=== PATIENT | female | born 1985 | race Caucasian/White ===

== ENCOUNTER → 2019-11-28 12:59 | Outpatient (CLI) | payer BC, OTHER, SELFPAY ==
[2019-11-28 15:11] LABS: GTT (PREG) 1 Hour PP 50gm Dose 154 mg/dL (76-139)
== END ==
PROVIDERS: PCP Family Medicine; Referring Provider Family Medicine; Visit Provider Family Medicine
DX: Z34.90 Encounter for supervision of normal pregnancy, unspecified, unspecified trimester (principal)
CPT/HCPCS: 36415; 82950

== ENCOUNTER → 2019-12-05 07:07 | Outpatient (CLI) | payer BC, OTHER, SELFPAY ==
[2019-12-05 08:42] LABS: Glucose Fasting 71 mg/dL (70-100)
[2019-12-05 10:08] LABS: Glucose 2 Hour 78 mg/dL (70-140)
[2019-12-05 10:19] LABS: Glucose 1 Hour 102 mg/dL (70-170)
[2019-12-05 10:30] LABS: Glucose Tol Interpretation INTERPRETATION
[2019-12-05 12:19] LABS: Glucose 3 Hour 89 mg/dL (70-115)
== END ==
PROVIDERS: PCP Family Medicine; Referring Provider Family Medicine; Visit Provider Family Medicine
DX: R73.09 Other abnormal glucose (principal)
CPT/HCPCS: 36415; 82951; 82952

== ENCOUNTER → 2019-12-22 07:33 | Outpatient (CLI) | payer BC, OTHER, SELFPAY ==
--- NOTE | 2019-12-22 07:35 | DI.US.S_ITS ---
LIMITED ULTRASOUND OF RIGHT BREAST AND AXILLA: 12/22/2019 CLINICAL: Palpable right breast lump. No prior mammograms in this young gravid patient. Color flow and real-time ultrasound of the right breast 3 o'clock, and axilla regions were performed. Conley scale images of the real-time examination were reviewed. There is a 2.6 cm x 2.3 cm x 1.3 cm oval mass with a circumscribed margin in the right breast at 3 o'clock posterior depth 7 cm from the nipple. This oval mass is hypoechoic with a well-defined boundary. This correlates as palpated. Color flow imaging demonstrates that there is vascularity present. There also is a 1.2 cm x 0.9 cm x 0.9 cm oval mass with a circumscribed margin in the right breast at 3 o'clock anterior depth 3 cm from the nipple. This oval mass is hypoechoic with a well-defined boundary. Color flow imaging demonstrates that there is vascularity present. No significant abnormalities were seen sonographically in the right axilla. IMPRESSION: PROBABLY BENIGN The 2.6 cm oval mass in the right breast at 3 o'clock posterior depth most likely is a fibroadenoma and is probably benign. The 1.2 cm oval mass in the right breast at 3 o'clock anterior depth most likely is a fibroadenoma and is probably benign. A follow-up mammogram and an ultrasound in 6 months is recommended to demonstrate stability. Contralateral left breast may also be helpful. Exam findings were reviewed with the patient over the phone by Dr. Nuñez. Possible biopsy of the larger mass was discussed. The patient would like to discuss biopsy with her provider and the patient will call to schedule biopsy if desired. This exam was interpreted at Station ID: [id number]. Electronically Signed By: Pelon Nuñez M.D. [facility]/:12/22/2019 09:04:55 letter sent: Followup Recommended Ultrasound BI-RADS: 3 Probably benign
== END ==
PROVIDERS: PCP Family Medicine; Referring Provider Family Medicine; Visit Provider Family Medicine
DX: R92.8 Other abnormal and inconclusive findings on diagnostic imaging of breast (principal); O92.29 Other disorders of breast associated with pregnancy and the puerperium; Z3A.33 33 weeks gestation of pregnancy
CPT/HCPCS: 76642

== ENCOUNTER → 2020-01-01 14:46 | Outpatient (CLI) | payer BC, OTHER, SELFPAY ==
--- NOTE | 2020-01-01 | PATH_ITS ---
[facility] Accession Number: [id number] . 01 Material submitted: . breast - RT BREAST 3:00 7CM FN . 02 Diagnosis: Right Breast Mass at 3 o'clock, 7 cm from Nipple, Needle Core Biopsy: Fibroepithelial lesion, consistent with fibroadenoma. Patchy regions of adenosis with lactational changes are present. Negative for atypia or malignancy. MRV 01/05/2020 1057 Local . 02 Comment: As part of routine quality assurance associate, this case was also reviewed by Dr. Ashraf, who agrees with the interpretation. . 02 Electronically signed: . Dora Zhong MD, Pathologist NPI- [id number] . 01 Gross description: . Received one formalin-filled container, labeled with the patient's name. The specimen leaked in transit, handwritten information on container not legible. Designated RT breast 3 o'clock, 7 cm FN biopsy. The specimen is received with a plastic filter in container, sample loose in container and consists of multiple light yellow-santos pieces of tissue which range in size from less than 0.1 cm to 0.6 x 0.3 x 0.3 cm. The specimen is entirely submitted in one cassette. Possible collection date and time per requisition: 01/01/20 at 1451. Total fixation time: Approximately 12 hours. ([id number]) /R 01/02/2020 0219 Local . 02 Pathologist provided ICD-10: D24.1 . 02 CPT . 175395 Performed at: 01 [facility] [address] [place] [address], [place], [place] [id number] MD Spencer Mesa MD Phone: [phone] Performed at: 02 [facility] [id number] [place] [id number] MD Fallon Ashraf MD Phone: [phone]
--- NOTE | 2020-01-01 14:47 | DI.US.S_ITS ---
ULTRASOUND GUIDED BIOPSY RIGHT BREAST USING VACUUM DEVICE WITH MARKING DEVICE INSERTED: 01/01/2020 CLINICAL: Right breast mass. PATIENT CONSENT: Risks (minor bleeding, infection, vasovagal reaction and repeat procedure), benefits and alternatives were explained to the patient and written informed consent was obtained. Correlation is made to exam dated: 12/22/2019 [facility]. An ultrasound guided biopsy using real-time ultrasound was performed for the mass located in the right breast at 3 o'clock posterior depth. The skin was prepped in the usual manner. Local anesthetic was administered to the access site. A small incision was made in the breast. The abnormality was approached from the medial aspect. A biopsy needle was placed adjacent to the abnormality under ultrasound guidance. Once the needle was documented to be in the correct location, six specimens were obtained using the Mammotome biopsy system. A clip was inserted into the biopsy cavity. Post procedure imaging demonstrates the location device at the targeted area. The specimens were sent to the laboratory for pathological analysis. IMPRESSION: ULTRASOUND GUIDED BIOPSY BENIGN Ultrasound guided biopsy of the mass in the right breast at 3 o'clock posterior depth was successful. Pathology indicates benign fibroadenoma. Pathology results are concordant with imaging findings. This exam was interpreted at Station ID: [id number]. Zaki josue,ar/:01/06/2020 12:15:30
== END ==
PROVIDERS: PCP Family Medicine; Referring Provider Family Medicine; Visit Provider Family Medicine
DX: D24.1 Benign neoplasm of right breast (principal); N60.21 Fibroadenosis of right breast
CPT/HCPCS: 19083

== ENCOUNTER → 2020-01-06 16:13 | Outpatient (CLI) | payer BC, OTHER, SELFPAY ==
[2020-01-08 17:27] LABS: Strep Grp B PCR NEG for Grp B Strep
== END ==
PROVIDERS: PCP Family Medicine; Visit Provider Family Medicine
DX: Z3A.36 36 weeks gestation of pregnancy (principal)
CPT/HCPCS: 87653

== ENCOUNTER → 2020-01-13 16:07 | Outpatient (CLI) | payer BC, OTHER, SELFPAY ==
[2020-01-13 18:01] LABS: Thyroid Stimulating Hormone 2.11 uIU/mL (0.47-4.68)
== END ==
PROVIDERS: PCP Family Medicine; Referring Provider Family Medicine; Visit Provider Family Medicine
DX: E03.9 Hypothyroidism, unspecified (principal)
CPT/HCPCS: 36415; 84443

== ENCOUNTER 2020-02-03 16:26 | Inpatient (IN) | payer BC, OTHER, SELFPAY ==
--- NOTE | 2020-02-03 18:53 | PM.OBHP.1 ---
OB HPI Date/Time Date of admission: 02/03/20 Date Patient Seen: 02/03/20 Time Patient Seen: 18:53 History of Present Condition Chief complaint: Eval of Labor : 3 Para: 0 Estimated Date of Delivery: 02/02/20 Estimated Gestational Age (weeks): 40w1d Narrative: No Monreal is a 34 year old at 40w1d who presented with regular painful contractions. Pt reports contractions starting around 8pm last night, increasing in intensity since then. They continue to be irregular in timing. She has had mild vaginal bleeding throughout the day today. No LOF. She has been feeling her baby move regularly. History of Present care: good care, initiated at week # (7) and pounds weight gain (36) Dating criteria: LMP confirmed by 1st trimester US Ultrasounds: normal 1st trimester US and normal mid trimester US Obstetrical complications: none Medical complications: other (hypothyroidism on levothyroxine) Preadmission Labs Blood type: O (+) positive -: Antibody screen: negative, GBS status: negative, HBsAG: negative, HIV: negative and RPR/VDLR: negative -: Chlamydia screen: not detected and Gonorrhea screen: not detected -: Rubella: immune HCT: 36.5 PAP: Normal Cell-free DNA: Negative 1 hr GTT: 154 3 hr GTT: 1 hr (102), 2 hr (78) and 3 hr (89) Fasting blood glucose: 71 Prior (ies) History: 2004 & 2007 - elective abortions Evaluation Evaluation Baseline heart rate: 130 Variability: Moderate (11-25) monitor accelerations: Present monitor decelerations: Absent Contraction Frequency (minutes): 2 Uterine Contraction Intensity: Strong/Firm Cervical dilation (cm): 5 Cervical effacement (%): 90 station: -1 [facility] Medical History AMA (advanced maternal age) primigravida 35+ (Acute) H/O being hospitalized (Acute) 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) Hypothyroidism (Acute) Surgical History No history of previous surgery (Acute) Family History Mother Breast cancer Brain cancer Father Family estrangement Grandfather Unknown whether patient has any health problems Grandmother Hip fracture Grandfather Unknown whether patient has any health problems Family estrangement Grandmother Unknown whether patient has any health problems Family estrangement Social History marital status: household members: spouse pets and animals: No education level: college (BA [employer] ) occupational status: employed current occupational exposures/hazards: No Previous occupational history: works from home currently special karely needs: No do you feel safe at home: Yes Smoking Status: Former smoker (in college - some experimental ) second hand exposure: No alcohol intake: former (pre- : rare) substance use type: does not use frequency: 5-6 times per week duration: 30-45 minutes/day Meds Home Medications and Allergies Home Medications Medication Instructions Recorded Confirmed Type levothyroxine 125 mcg capsule 125 mcg PO DAILY 11/20/19 01/13/20 History prenat.vits,raul,bmg-yubo-plaab 1 tab PO DAILY 11/20/19 01/13/20 History breast pump #1 each 01/20/20 01/20/20 Rx Allergies Allergy/AdvReac Type Severity Reaction Status Date / Time No Known Drug Allergies Allergy Verified 01/13/20 15:47 Exam Narrative Exam Narrative: Gen: NAD, sitting comfortably in bed, appears well CV: RRR, no murmurs Resp: clear to auscultation bilaterally Abd: soft, nondistended, gravid Ext: no edema Objective Labs Result Diagrams: 02/03/20 19:30 Assessment and Plan Assessment and Plan Assessment and Plan narrative: 34yo at 40w1d who presented in active labor. complicated by hypothyroidism well controlled on Levothyroxine. GBS negative, Rh positive. - Expectant management, anticipate - FHT reassuring - Epidural for pain control if desired - GBS negative, no prophylaxis indicated
[2020-02-03 19:46] LABS: Add Manual Diff / Slide Review NO; Basophils Absolute Auto 100 /uL (0-100); Basophils Percent Auto 0.4 % (0-2); Eosinophils Absolute Auto 0 /uL (0-450); Eosinophils Percent Auto 0.2 % (2-4); Hematocrit 36.5 % (36-46); Hemoglobin 12.5 g/dL (12.0-16.0); Lymphocytes Absolute Auto 1200 /uL (1100-4500); Lymphocytes Percent Auto 7.1 % (25-40); Mean Corpuscular HGB Conc 34.2 % (30-36); Mean Corpuscular Hemoglobin 32.1 PG (26-34); Mean Corpuscular Volume 93.9 fL (80-100); Monocytes Absolute Auto 700 /uL (0-900); Monocytes Percent Auto 4.4 % (3-14); Neutrophils Absolute Auto 14600 /uL (1500-7000); Neutrophils Percent Auto 87.9 % (50-75); Platelet Count 123 X10^3/uL (150-400); Red Blood Cell Count 3.89 X10^6/uL (4.0-5.2); Red Cell Distribution Width 12.9 % (11.6-14.8); White Blood Cell Count 16.6 X10^3/uL (4.5-11.0)
[2020-02-03 20:19] LABS: COVID19 -Nasal RAPID Negative (Negative)
[2020-02-03] MEDS: LACTATED RINGERS 1,000 ML 100 ML IV (21:00)
[2020-02-04] MEDS: OXYTOCIN PREMIX 30 UNIT/500 ML PLAST..BAG IV (01:35)
[2020-02-04] MEDS: LACTATED RINGERS 1,000 ML 100 ML IV (02:04)
--- NOTE | 2020-02-04 04:23 | PM.OBPNLAB ---
Date/Time Date Patient Seen: 02/04/20 Time Patient Seen: 02:45 Pelvic Exam Dilation (cm): 10 Effacement (%): 100 station: 0 Contractions Pitocin rate (mU/min): 3 Contraction frequency (min): 5 Contraction pattern: Irregular Contraction intensity: Strong/Firm Status status: Category l Heart Rate Baseline: 130 Monitor Accelerations: Present Monitor Decelerations: Absent Monitor Variability: Moderate Assessment and Plan Comments: 34yo at 40w1d who presented in active labor. complicated by hypothyroidism well controlled on Levothyroxine. GBS negative, Rh positive. Pitocin initiated due to minimal cervical change and irregular contractions. - Expectant management, anticipate - FHT reassuring - Epidural in place for pain control, working well - GBS negative, no prophylaxis indicated - Continue pitocin, titrate as tolerated
[2020-02-04] MEDS: FENT 2MCG/ML BUPIV 0.125% EPI 200 MCG/100 ML PLAST..BAG 8 MCG EPIDURAL (07:00)
--- NOTE | 2020-02-04 10:26 | PM.OBPRVD ---
Labor & Delivery Delivery date: 02/04/20 Estimated blood loss (mL): 200 Anesthesia type: Epidural Complications: None Narrative: PROCEDURE: at 40w2d presented in active labor and was admitted to Labor and Delivery. The patient progressed through the 1st stage over 17.5 hours. Pain was controlled with an epidural. The pt was started on Pitocin due to spacing of her contractions. The patient progressed through the 2nd stage over 4hrs. Due to maternal exhaustion and asynclitic presentation, the decision was made to proceed with an operative vaginal delivery. Indication for operative vaginal delivery was assessed to be secondary to maternal exhaustion and asynclitic presentation. Patient was evaluated and noted to have adequate pain control. Patient counseled on risks/benefits/alternatives of vacuum assisted delivery. Risks were discussed and they included but were not limited to a need for an episiotomy, pressure alva on the baby, lacerations to the baby's scalp/face, serious damage including skull fracture, the need to proceed with an abdominal procedure, , paralysis of the baby's arms and/or legs, neurological impairment of the baby. Alternatives would include CS or further observation depending on status. Questions were answered and the patient verbalized an understanding and decided to proceed. Cervix completely dilated and maternal bladder emptied. Vacuum cup of the Kiwi Omni[employer] applied to the flexion point without difficulty and during contractions, pressure applied between 400-600 mmHg as indicated in the green zone of the pressure gauge. With pulls, there was progression of the station, however was unable to progress to fully . After 6 pulls and 1 pop-off, it was determined that the vacuum would not be successful and no further attempts were made. Dr Dodd was consulted, and it was determined that forceps would be appropriate to attempt for delivery. The Laufe forceps were applied without difficulty to the head and articulated easily. Using downward traction during 2 sets of contractions, the infant was delivered over intact perineum without difficulty. The infant delivered direct OP presentation, however caput indicated likely ROT presentation prior to forceps placement. Forceps were removed when the pt was . The anterior shoulder and remainder of the was delivered without difficulty to maternal abdomen. Cord clamped and cut. was then taken to the warmer. APGARs were 7/9. There was superficial bruising on the head from the forceps and vacuum, in addition to a large abrasion around the site of the vacuum. Facial exam was symmetric. After delivery of the , thin meconium was noted. The perineum and vagina were inspected with 3rd degree laceration noted, with a very small laceration into the most peripheral rectal mucosa. The mucosa was repaired with 3-O Chromic, and muscle with O-Vicryl with interrupted sutures. The remainder of the laceration was then repaired with 2-O Chromic in the usual fashion. PREPROCEDURE DIAGNOSIS: Intrauterine at 40w1d GBS negative RH positive POSTPROCEDURE DIAGNOSIS: Intrauterine at 40w2d, delivered Same as preprocedure Asynclitic presentation Failed vacuum, forceps-assisted vaginal delivery INDUCTION: No LABOR AUGMENTATION: Pitocin ROM APPEARANCE: Meconium-stained BABY A DELIVERY TIME: 8:24 BABY A OUTCOME: Viable BABY A SEX: Male BABY A WEIGHT: 8lb2.4oz BABY A PRESENTATION: Vertex BABY A POSITION: Direct OP BABY A NUCHAL CORD: None BABY A # CORD VESSELS: 3 BABY A CORD GASES OBTAINED: No PLACENTA DELIVERY TIME: 8:28 PLACENTAL DELIVERY TYPE: Spontaneous PLACENTA APPEARANCE: Intact [place] Baby 1: gender: Male cord vessel description: 3 Vessels score (1 min): 7 score (5 min): 9 Plan for aftercare: Normal care Stool softeners
[2020-02-04] MEDS: IBUPROFEN 600 MG TABLET PO ×3 (10:38→22:32)
[2020-02-05] MEDS: IBUPROFEN 600 MG TABLET PO (06:27)
[2020-02-05] MEDS: LEVOTHYROXINE 125 MCG TABLET PO (06:27)
[2020-02-05] MEDS: DOCUSATE 100 MG CAPSULE PO (09:15)
--- NOTE | 2020-02-05 09:52 | P.DS_ITS ---
Discharge Providers Provider Date of admission: 02/03/20 16:26 Discharge Date: 02/05/20 Primary care physician: Kimmie Wallis MD Consults: 02/05/20 09:16 Consult to Public Works Supervisor Routine Comment: Discharge provider: Kimmie Wallis MD Summary Hospital Course Date Patient Seen: 02/05/20 Time Patient Seen: 08:15 Procedures: Forceps-assisted vaginal delivery Hospital Course: The patient presented in active labor. She received an epidural for pain control. Pitocin was initiated due to spacing of her contractions. She slowly progressed to complete dilation. The patient pushed for nearly 4 hours. Due to maternal exhaustion and Gregorio in clinic presentation, vacuum was applied. After 6 pulls the, it was determined the vacuum would not be successful. Due to very low station, forceps were then applied. The patient successfully delivered a viable baby boy via forceps assisted vaginal delivery in direct OP presentation. A third-degree perineal laceration was then repaired. Rectal exam after repair was intact. , there were no significant complications. At the time of discharge the patient was voiding, ambulating, and passing flatus without difficulty. She did have some discomfort with sitting. She will continue on stool softeners at discharge. Her lochia was decreasing appropriately. She is breast-feeding with good latch. Her pain was adequately controlled with ibuprofen. She will follow-up in clinic in 6 weeks for well-child check. This provider will also be seen the patient's infant, and will check in with the patient frequently in the interim. The patient is undecided regarding contraception. Peripartum Data Delivery Method: Assisted Delivery Laceration Description: Perineal - 3rd Degree Episiotomy description: None complications: none 1: Gender: Male Disposition of : home Time Spent with Patient Time attestation: Total time spent providing and/or coordinating discharge services: Time spent: Greater than 30 minutes Objective Labs Result Diagrams: 02/03/20 19:30 Discharge Plan Discharge Plan Patient Disposition: Home Discharge orders & Medications Prescriptions: New docusate sodium [DOK] 100 mg Capsule 100 mg PO BID Qty: 60 RF: 0 ibuprofen 600 mg Tablet 600 mg PO Q6HR PRN (Reason: Pain, Mild (1-3)) Qty: 30 RF: 0 magnesium hydroxide [Milk of Magnesia] 400 mg/5 mL suspension 30 ml PO BEDTIME PRN (Reason: Constipation) Qty: 300 RF: 0 polyethylene glycol 3350 [Miralax] 17 gram/dose powder 17 gram PO DAILY Qty: 238 RF: 0 Continued (DME) breast pump Device See Rx Instructions .ROUTE .MEDSUPPLY Qty: 1 RF: 0 prenat.vits,raul,jkj-apqi-lanta Tablet 1 tab PO DAILY RF: 0 levothyroxine 125 mcg capsule 125 mcg PO DAILY RF: 0 Follow up/Referrals: Kimmie Wallis MD [Primary Care Provider] - 6 Weeks Diet/Activity/Treatments Diet: Regular Visit Report/Discharge Packet Instructions: DI for Labor and Delivery, Vaginal Visit Report Forms: Patient Portal/API, Stroke Signs & Symptoms Discharge Data Primary Care Provider: Kimmie Wallis
[2020-02-05 09:56] VITALS: BP 103/63; PULSE 82; RESP 16; TEMP 37.1
--- NOTE | 2020-02-11 13:52 | P.CONS_ITS ---
History of Present Illness Consult details Date Patient Seen: 02/04/20 Time Patient Seen: 08:30 Chief complaint: MATERNITY Reason for consult: Prolonged 2nd stage of labor Requesting provider: Kimmie Wallis Narrative: Patient is a 34-year-old 3 para 0020 at 40-,2/7 weeks gestation who presented in active labor. The patient progressed but had a 17- 1/2 hour 1st stage of labor. She received an epidural for pain management. She was started on Pitocin to augment labor. Eight in at delivery, there was failed vacuum attempt x4. Ob consult id regarding possible use of forceps for delivery. Meds Home Medications and Allergies Home Medications Medication Instructions Recorded Confirmed Type levothyroxine 125 mcg capsule 125 mcg PO DAILY 11/20/19 01/13/20 History prenat.vits,raul,wvh-xfix-papiq 1 tab PO DAILY 11/20/19 01/13/20 History breast pump #1 each 01/20/20 01/20/20 Rx docusate sodium [DOK] 100 mg PO BID #60 cap 02/05/20 Rx ibuprofen 600 mg PO Q6HR PRN #30 tab 02/05/20 Rx magnesium hydroxide [Milk of 30 ml PO BEDTIME PRN #300 ml 02/05/20 Rx Magnesia] polyethylene glycol 3350 [Miralax] 17 gram PO DAILY #238 gram 02/05/20 Rx Allergies Allergy/AdvReac Type Severity Reaction Status Date / Time No Known Drug Allergies Allergy Verified 01/13/20 15:47 Exam Vital Signs (past 8 hours): Generally: Patient comfortable with contractions. Vaginal exam: Patient is complete and +1 station. There is caput that extends to the +2 station. There are superficial abrasions on the scalp. The baby is in the right occiput transverse presentation. Procedure: The bladder was emptied of a small amount of clear yellow urine. The Laufe forceps were applied and articulated without difficulty. With 2 contractions the vertex delivered in the direct occiput posterior presentation over an intact perineum. The Laufe forceps were removed removed at . The remainder of the body delivered without difficulty by Dr. Wallis. There was a partial third-degree laceration and a small mucosal tear on the rectum. These were repaired in the usual fashion by Dr. Wallis. Objective Labs Result Diagrams: 02/03/20 19:30 Assessment & Plan Assessment & Plan narrative: Assessment: 34-year-old 3 para 0020 at 40-,2/7 weeks gestation with a prolonged 2nd stage of labor Failed vacuum delivery Plan: Outlet forceps delivery as above Repair by Dr. Wallis as above. Time Spent With Patient Time with patient: 25 - 35 minutes
== END 2020-02-05 11:41 | disposition home or self-care (01) | DRG 768 ==
PROVIDERS: Admitting Provider Family Medicine; PCP Family Medicine; Referring Provider Family Medicine; Visit Provider Family Medicine
DX: O32.8XX0 Maternal care for other malpresentation of fetus, not applicable or unspecified (principal); Z37.0 Single live birth; O70.20 Third degree perineal laceration during delivery, unspecified; O75.81 Maternal exhaustion complicating labor and delivery; Z3A.40 40 weeks gestation of pregnancy
CPT/HCPCS: 01967; 59050; 59410; 85025; 86850; 86900; 86901; 87635; 99233; 99253; G0379; J2590

== ENCOUNTER → 2020-07-16 17:49 | Outpatient (CLI) | payer BC, OTHER, SELFPAY ==
[2020-07-16 18:22] LABS: COVID19 -Nasal RAPID Negative (Negative)
== END ==
PROVIDERS: PCP Family Medicine; Visit Provider Physician Assistant
DX: R50.9 Fever, unspecified (principal); Z20.822 Contact with and (suspected) exposure to COVID-19
CPT/HCPCS: 87635

== ENCOUNTER → 2020-09-29 15:46 | Outpatient (CLI) | payer BC, OTHER, SELFPAY ==
[2020-09-30 12:27] LABS: Mumps Virus IgG Antibody 39.7 AU/mL (Immune >10.9); Rubeola Measles IgG < 13.5 AU/mL (Immune >16.4); Varicella IgG Antibody 1592 index (Immune >165)
[2020-09-30 16:32] LABS: Rubella Antibody IgG 32.8 IU/mL (>15)
== END ==
PROVIDERS: PCP Family Medicine; Referring Provider Family Medicine; Visit Provider Family Medicine
DX: Z02.0 Encounter for examination for admission to educational institution (principal)
CPT/HCPCS: 36415; 86735; 86762; 86765; 86787

== ENCOUNTER 2020-10-14 13:45 | Outpatient (RCR) | payer BC, OTHER, SELFPAY ==
--- NOTE | 2020-03-23 18:42 | PT.OIE ---
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) Hypothyroidism (Acute) Third degree perineal laceration during delivery (Acute) Past Surgical History (Last Reviewed 12/17/19 @ 18:00 by GREGORY Burt) No history of previous surgery (Acute) Visit Care Team Role Provider Type Kimmie Wallis MD Attending Provider Physician Primary Care Provider Referring Provider Specialty: [facility] Address: [address] [place] [address], [facility] Email: [email or web address] Physical Therapy Initial Evaluation PT-OP-A Visit Information Start: 03/23/20 12:07 Freq: Status: Active Protocol: Document 03/23/20 12:58 [facility] (Rec: 03/23/20 12:59 [facility] [id number]) Out-Patient Physical Therapy Visit Information Visit Information Visit Type Initial Evaluation Visit Start Time 13:00 Visit Stop Time 13:45 Total Visit Minutes 45 Visit Number 1 Evaluation Information Evaluation Date 03/23/20 PT-OP-B Current Condition Start: 03/23/20 12:07 Freq: Status: Active Protocol: Document 03/23/20 13:01 [facility] (Rec: 03/23/20 13:15 [facility] [id number]) Current Condition History of Current Condition Onset Date 7 weeks post with forceps assists vaginal delivery 03 of February Current Complaints 3rd degree perineal tear with forcepts assisted vaginal delivery History of Current Condition 3rd degree perineal tear, having problems with flatulance, she has not yet returned to work. She wants to check for diastasis recti today as well. Hayes reports they tried to use vaccumm but it didn't work and they had to use forceps. 3 weeks post she needed to be restictched. As of 10/ 28/20 she still was not cheng fully healed. She has appointment with Dr. Dodd next sunday. No complaints of leakage or fecal incontinence but is concerned about returning to work and what she can do to help heal her tissue. Treatment Goals Patient/Caregiver Goals Annamarie goals include recovering from her 3rd degree perineal tear. improving strength and preventing any pelvic organ prolapse Current Functional Impairments (Reported) Functional Limitations- ADL's limited with activities that cause straining or downward pressure. Hayes is not lifting any thing heavy at this time and is walking only for exercise. PT-OP-C Subjective Start: 03/23/20 12:07 Freq: Status: Active Protocol: Document 03/23/20 18:04 [facility] (Rec: 03/23/20 18:33 [facility] [email or web address]) Patient Questionnaires Pelvic Pain and Urgency/Frequency Patient Symptom Scale Pelvic Pain Score 21 PT-OP-I Pelvic Floor Start: 03/23/20 12:07 Freq: Status: Active Protocol: Document 03/23/20 18:33 [facility] (Rec: 03/23/20 18:34 [facility] [email or web address]) Pelvic Floor Assessment Urine Pelvic Floor Surgery No: 3rd degree perineal laceration Perineal Descent Resting Present Comments Pelvic Floor Comments internal pelvic floor not tested today due to the perineum not being fully healed. Hayes was able to pull the perineum up and in though with a pelvic floor contraction PT-OP-J Posture/Palpation/Skin Start: 03/23/20 12:07 Freq: Status: Active Protocol: Document 03/23/20 18:04 [facility] (Rec: 03/23/20 18:33 [facility] [email or web address]) Palpation Assessment Location linea alba abdominal wall Palpation Location linea alba abdominal wall Palpation Details palpation for diastasis recti: There is no coning present with abdominal curl up, there is a 2 finger width seperation above and below the umbilicus PT-OP-M Strength Start: 03/23/20 18:35 Freq: Status: Active Protocol: Document 03/23/20 18:35 [facility] (Rec: 03/23/20 18:35 [facility] [email or web address]) Trunk Strength Trunk Manual Muscle Testing Flexion 3 Fair Core Stabilization decreased activation of the transverse abdominal muscle PT-OP-Q Treatments Start: 03/23/20 12:07 Freq: Status: Active Protocol: Document 03/23/20 18:04 [facility] (Rec: 03/23/20 18:33 [facility] [email or web address]) Therapeutic Exercises Supine Exercises supine adductor squeeze with ball Supine Exercise Name supine adductor squeeze with ball Side bilateral Reps/Minutes x 10 reps diaphragmatic breathing Supine Exercise Name supine diaphragmatic breathing Reps/Minutes x 5 Comments worked on inhaling and letting abdominal wall rise, exhale let it fall pelvic floor activation Supine Exercise Name pelvic floor activation Reps/Minutes 10 reps holding 3-4 seconds and resting 5-10 seconds Comments cues to lift up from the perineum TA facilitation Supine Exercise Name TA facilitation in supine Side bilateral Comments pt given cues on how to facilitate her TA musculature PT-OP-T Assessment and Plan Start: 03/23/20 12:07 Freq: Status: Active Protocol: Document 03/23/20 18:04 [facility] (Rec: 03/23/20 18:33 [facility] [email or web address]) Physical Therapy Assessment Rehab Potential Rehabilitation Potential Good Evaluation Complexity Number of Personal Factors/Comorbidities 0 Number of Body Systems Impaired 1-2 Clinical Presentation at Evaluation Stable Impairments Impairments Activity Tolerance,Pain,Soft Tissue Mobility,Strength Goals stretch weakness of the transverse abdominal musculature Impairment stretch weakness of the transverse abdominal musculature Short Term Goal (STG) Hayes is able to sustain a abdominal contraction for 10 seconds in quadruped. STG Duration 4 weeks Field Automobile Adjuster Goal (LTG) Hayes is able to facilitate her core prior to lifting her baby for support of her back and pelvic organs. LTG Duration 8 weeks hayes lacks a home exercise program for pelvic floor strengthening Impairment Pt lacks a home program for pelvic floor strengthening Field Automobile Adjuster Goal (LTG) Hayes is independent with a home program for core and pelvic floor strengthening to support her pelvic organs and decrease c/o flatulance 3rd degree perineal tear Impairment 3rd degree perineal tear s/o forceps and vaccum assisted vaginal delivery Field Automobile Adjuster Goal (LTG) Hayes is able to engage her pelvic floor muscles and lift her perineum sustaining a contraction for 10 seconds. LTG Duration 8 weeks Assessment Summary Assessment Hayes is a 34 year old female 2 para 1 who is 7 weeks from a vaginal delivery with vaccum and forceps assist. She sustained a 3rd degree perineal tear. At 2 weeks she had to have some tissue re-sutured. She returned for a check on and there was a suture visable on the perineal body and laceration was partially healed. She is not to have any internal work done today until cleared by Dr. Dodd. I did observe the perineal tissue with pelvic floor contraction and she is able to perform a lift of the perienum up with pelvic floor contraction. I will hold off on further evaluation until cleared to do so. With examination for diastasis recti there is a 2 finger width seperation both proximal and distal to the umbilicus. There is no coning with abdominal contraction. I worked today on diaphragmatic breathing, education on Transverse abdominal facilitation and avoidance of straining to decrease downward pressure on the pelvic floor. I started Hayes with pelvic floor gentle contractions holding 4-5 seconds. Hayes is not complaining of any prolapse symptoms and denies any complaints of bladder or bowel leakage. 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 Further pelvic floor evaluation will be completed once the perienum is healed. Physical Therapy Plan Frequency and Duration Frequency of Treatment 1x/Week Duration of Treatment 8 Plan of Care Start Date 03/23/20 Plan of Care End Date 05/18/20 Therapeutic Interventions Therapeutic Interventions Home Exercise Program,Manual Therapy,Neuromuscular Re- education,Self-Care/Home Management,Soft Tissue Mobilization,Therapeutic Exercises Modalities Biofeedback,Ultrasound Next Visit Focus/Plan Next Note Type Treatment Note Next Visit Plan recheck in next visit after pt sees , pelvic floor evaluation once cleared.
--- NOTE | 2020-03-23 18:43 | PT.OPPOC ---
Physical, Occupational & Speech Therapy At [facility] Current Diagnoses Other female genital prolapse (03/23/20) Third degree perineal laceration during delivery, unspecified (03/23/20) Visit Care Team Role Provider Type Kimmie Wallis MD Attending Provider Physician Primary Care Provider Referring Provider Specialty: Family Practice Address: [address] [place] [address], [place], [place], [facility] Email: [email or web address] Plan Of Care PT-OP-T Assessment and Plan Start: 03/23/20 12:07 Freq: Status: Active Protocol: Document 03/23/20 18:04 [facility] (Rec: 03/23/20 18:33 [facility] [email or web address]) Physical Therapy Assessment Rehab Potential Rehabilitation Potential Good Evaluation Complexity Number of Personal Factors/Comorbidities 0 Number of Body Systems Impaired 1-2 Clinical Presentation at Evaluation Stable Impairments Impairments Activity Tolerance,Pain,Soft Tissue Mobility,Strength Goals stretch weakness of the transverse abdominal musculature Impairment stretch weakness of the transverse abdominal musculature Short Term Goal (STG) Hayes is able to sustain a abdominal contraction for 10 seconds in quadruped. STG Duration 4 weeks Half-Way Goal (LTG) Hayes is able to facilitate her core prior to lifting her baby for support of her back and pelvic organs. LTG Duration 8 weeks hayes lacks a home exercise program for pelvic floor strengthening Impairment Pt lacks a home program for pelvic floor strengthening Half-Way Goal (LTG) Hayes is independent with a home program for core and pelvic floor strengthening to support her pelvic organs and decrease c/o flatulence 3rd degree perineal tear Impairment 3rd degree perineal tear s/o forceps and vacuum assisted vaginal delivery Half-Way Goal (LTG) Hayes is able to engage her pelvic floor muscles and lift her perineum sustaining a contraction for 10 seconds. LTG Duration 8 weeks Assessment Summary Assessment Hayes is a 34 year old female 2 para 1 who is 7 weeks from a vaginal delivery with vacuum and forceps assist. She sustained a 3rd degree perineal tear. At 2 weeks she had to have some tissue re-sutured. She returned for a check on and there was a suture visible on the perineal body and laceration was partially healed. She is not to have any internal work done today until cleared by Dr. Dodd. I did observe the perineal tissue with pelvic floor contraction and she is able to perform a lift of the perineum up with pelvic floor contraction. I will hold off on further evaluation until cleared to do so. With examination for diastasis recti there is a 2 finger width separation both proximal and distal to the umbilicus. There is no coning with abdominal contraction. I worked today on diaphragmatic breathing, education on Transverse abdominal facilitation and avoidance of straining to decrease downward pressure on the pelvic floor. I started Hayes with pelvic floor gentle contractions holding 4-5 seconds. Hayes is not complaining of any prolapse symptoms and denies any complaints of bladder or bowel leakage. 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 Further pelvic floor evaluation will be completed once the perineum is healed. Physical Therapy Plan Frequency and Duration Frequency of Treatment 1x/Week Duration of Treatment 8 Plan of Care Start Date 03/23/20 Plan of Care End Date 05/18/20 Therapeutic Interventions Therapeutic Interventions Home Exercise Program,Manual Therapy,Neuromuscular Re- education,Self-Care/Home Management,Soft Tissue Mobilization,Therapeutic Exercises Modalities Biofeedback,Ultrasound Next Visit Focus/Plan Next Note Type Treatment Note Next Visit Plan recheck in next visit after pt sees MD, pelvic floor evaluation once cleared. Plan of Care Dates Plan of Care Start Date 03/23/20 Plan of Care End Date 05/18/20 Electronically Signed by: Landy Mccracken, PT 03/23/20 [id number] Please Sign and Return: I have reviewed this Plan of Care and certify that the skilled therapy services above are required to meet the patient?s needs. Physician Signature Date Printed Name and Credentials Clinical Instructor Signature Printed Name and Credentials
--- NOTE | 2020-03-30 17:47 | PT.OTN ---
Current Diagnoses Other female genital prolapse (03/30/20) Third degree perineal laceration during delivery, unspecified (03/30/20) Physical Therapy Treatment Note PT-OP-A Visit Information Start: 03/23/20 12:07 Freq: Status: Active Protocol: Document 03/30/20 17:43 [facility] (Rec: 03/30/20 17:47 [facility] [id number]) Out-Patient Physical Therapy Visit Information Visit Information Visit Type Treatment Note Visit Start Time 14:30 Visit Stop Time 15:15 Total Visit Minutes 45 Visit Number 2 PT-OP-B Current Condition Start: 03/23/20 12:07 Freq: Status: Active Protocol: Document 03/23/20 13:01 [facility] (Rec: 03/23/20 13:15 [facility] [id number]) Current Condition History of Current Condition Onset Date 7 weeks post with forceps assists vaginal delivery 03 of February Current Complaints 3rd degree perineal tear with forcepts assisted vaginal delivery History of Current Condition 3rd degree perineal tear, having problems with flatulance, she has not yet returned to work. She wants to check for diastasis recti today as well. No reports they tried to use vaccumm but it didn't work and they had to use forceps. 3 weeks post she needed to be restictched. As of she still was not cheng fully healed. She has appointment with Dr. Dodd next sunday. No complaints of leakage or fecal incontinence but is concerned about returning to work and what she can do to help heal her tissue. Treatment Goals Patient/Caregiver Goals Annamarie goals include recovering from her 3rd degree perineal tear. improving strength and preventing any pelvic organ prolapse Current Functional Impairments (Reported) Functional Limitations- ADL's limited with activities that cause straining or downward pressure. No is not lifting any thing heavy at this time and is walking only for exercise. PT-OP-C Subjective Start: 03/23/20 12:07 Freq: Status: Active Protocol: Document 03/30/20 14:36 [facility] (Rec: 03/30/20 14:43 [facility] [id number]) OP-PT Subjective Patient Comments Patient Comments Has appointment with Dr. Lantigua tomorrow at 10:30. Pt notes she is able to contract to 5 seconds before she feels like other muscles are kicking in. PT-OP-I Pelvic Floor Start: 03/23/20 12:07 Freq: Status: Active Protocol: Document 03/23/20 18:33 [facility] (Rec: 03/23/20 18:34 [facility] [email or web address]) Pelvic Floor Assessment Urine Pelvic Floor Surgery No: 3rd degree perineal laceration Perineal Descent Resting Present Comments Pelvic Floor Comments internal pelvic floor not tested today due to the perineum not being fully healed. No was able to pull the perineum up and in though with a pelvic floor contraction PT-OP-J Posture/Palpation/Skin Start: 03/23/20 12:07 Freq: Status: Active Protocol: Document 03/23/20 18:04 [facility] (Rec: 03/23/20 18:33 [facility] [email or web address]) Palpation Assessment Location linea alba abdominal wall Palpation Location linea alba abdominal wall Palpation Details palpation for diastasis recti: There is no coning present with abdominal curl up, there is a 2 finger width seperation above and below the umbilicus PT-OP-M Strength Start: 03/23/20 18:35 Freq: Status: Active Protocol: Document 03/23/20 18:35 [facility] (Rec: 03/23/20 18:35 [facility] [email or web address]) Trunk Strength Trunk Manual Muscle Testing Flexion 3 Fair Core Stabilization decreased activation of the transverse abdominal muscle PT-OP-Q Treatments Start: 03/23/20 12:07 Freq: Status: Active Protocol: Document 03/30/20 17:43 [facility] (Rec: 03/30/20 17:47 [facility] [id number]) Therapeutic Exercises Supine Exercises TA with heel slides Supine Exercise Name TA with heel slides Reps/Minutes x 5 supine adductor squeeze with ball Supine Exercise Name supine adductor squeeze with ball Side bilateral Reps/Minutes x 10 reps Comments added in bridges with ball pelvic floor activation Supine Exercise Name pelvic floor activation Reps/Minutes 10 reps holding 3-4 seconds and resting 5-10 seconds Comments cues to lift up from the perineum TA facilitation Supine Exercise Name TA facilitation in supine Side bilateral Comments pt given cues on how to facilitate her TA musculature Sidelying Exercises 1 Sidelying Exercise Name clam shells Side bilateral Reps/Minutes 2 x 10 Self-Care/Home Management Treatment Education Patient Education Home Exercise Program,Safety Other Education education on avoiding exercises that cause downward pressure onto the pelvic floor muscles. PT-OP-T Assessment and Plan Start: 03/23/20 12:07 Freq: Status: Active Protocol: Document 03/30/20 17:43 [facility] (Rec: 03/30/20 17:47 [facility] [id number]) Physical Therapy Assessment Assessment Summary Assessment No has not yet been cleared by Dr. Dodd to begin internal work. SHe is not experiencing any pain but has felt some rectal pressure after a long walk. She is anxious to get back to exercises and we reviewed things she could do safely today without placing strain down on her pelvic floor. Physical Therapy Plan Frequency and Duration Frequency of Treatment 1x/Week Duration of Treatment 8 Plan of Care Start Date 03/23/20 Plan of Care End Date 05/18/20 Therapeutic Interventions Therapeutic Interventions Home Exercise Program,Manual Therapy,Neuromuscular Re- education,Self-Care/Home Management,Soft Tissue Mobilization,Therapeutic Exercises Modalities Biofeedback,Ultrasound Next Visit Focus/Plan Next Note Type Treatment Note Next Visit Plan recheck in next visit after pt sees , pelvic floor evaluation once cleared.
--- NOTE | 2020-04-07 13:59 | PT.OTN ---
Current Diagnoses Other female genital prolapse (04/07/20) Third degree perineal laceration during delivery, unspecified (04/07/20) Physical Therapy Treatment Note PT-OP-A Visit Information Start: 03/23/20 12:07 Freq: Status: Active Protocol: Document 04/07/20 12:01 [facility] (Rec: 04/07/20 12:10 [facility] [id number]) Out-Patient Physical Therapy Visit Information Visit Information Visit Type Treatment Note Visit Start Time 12:00 Visit Stop Time 12:45 Total Visit Minutes 45 Visit Number 3 PT-OP-B Current Condition Start: 03/23/20 12:07 Freq: Status: Active Protocol: Document 03/23/20 13:01 [facility] (Rec: 03/23/20 13:15 [facility] [id number]) Current Condition History of Current Condition Onset Date 7 weeks post with forceps assists vaginal delivery 03 of February Current Complaints 3rd degree perineal tear with forcepts assisted vaginal delivery History of Current Condition 3rd degree perineal tear, having problems with flatulance, she has not yet returned to work. She wants to check for diastasis recti today as well. No reports they tried to use vaccumm but it didn't work and they had to use forceps. 3 weeks post she needed to be restictched. As of she still was not cheng fully healed. She has appointment with Dr. Dodd next sunday. No complaints of leakage or fecal incontinence but is concerned about returning to work and what she can do to help heal her tissue. Treatment Goals Patient/Caregiver Goals Annamarie goals include recovering from her 3rd degree perineal tear. improving strength and preventing any pelvic organ prolapse Current Functional Impairments (Reported) Functional Limitations- ADL's limited with activities that cause straining or downward pressure. No is not lifting any thing heavy at this time and is walking only for exercise. PT-OP-C Subjective Start: 03/23/20 12:07 Freq: Status: Active Protocol: Document 04/07/20 12:01 [facility] (Rec: 04/07/20 12:10 [facility] [id number]) OP-PT Subjective Patient Comments Patient Comments Pt saw Dr. Dodd and there is still a small amount of granulation tissue along the perineal body as well as the right vaginal opening and 11 oclock around the rectum. These areas were treated with Silver nitrate. No was cleared for intercourse. Patient Reported Progress Same PT-OP-I Pelvic Floor Start: 03/23/20 12:07 Freq: Status: Active Protocol: Document 04/07/20 13:58 [facility] (Rec: 04/07/20 13:59 [facility] [id number]) Pelvic Floor Assessment Perineal Descent Resting Present Bearing Present SEMG (uV) Baseline 1.5 10 Second Contraction 4.7 Recruitment Pattern Fair Relaxation Good Holding Fair Stability of Hold Fair SEMG Stability of Rest Good Contraction Ability Voluntary Contraction Weak Voluntary Relaxation Weak Manual Muscle Testing Left 2 Manual Muscle Testing Right 2 Manual Muscle Testing Anterior 1 Manual Muscle Testing Posterior 1 Comments Pelvic Floor Comments Difficult to sustain contraction > 5-6 seconds, pt to work up to 10 second hold time for home PT-OP-J Posture/Palpation/Skin Start: 03/23/20 12:07 Freq: Status: Active Protocol: Document 03/23/20 18:04 [facility] (Rec: 03/23/20 18:33 [facility] [email or web address]) Palpation Assessment Location linea alba abdominal wall Palpation Location linea alba abdominal wall Palpation Details palpation for diastasis recti: There is no coning present with abdominal curl up, there is a 2 finger width seperation above and below the umbilicus PT-OP-M Strength Start: 03/23/20 18:35 Freq: Status: Active Protocol: Document 03/23/20 18:35 [facility] (Rec: 03/23/20 18:35 [facility] [email or web address]) Trunk Strength Trunk Manual Muscle Testing Flexion 3 Fair Core Stabilization decreased activation of the transverse abdominal muscle PT-OP-Q Treatments Start: 03/23/20 12:07 Freq: Status: Active Protocol: Document 04/07/20 13:47 [facility] (Rec: 04/07/20 13:58 [facility] [id number]) Therapeutic Exercises Supine Exercises pelvic floor activation Supine Exercise Name EMG biofeedback was used for pelvic floor muscle training Reps/Minutes 10 reps x 10 second hold time Comments average hold is 4.7 uv with max of 7.9 uv and 1.8 uv rest Manual Therapy Treatment Manual Techniques pelvic floor manual evaluation Type MMT of the levator ani Neuro Re-Education Treatment Other Activities NMES Details NMES for the pelvic floor Comments pt able to increase stimulation to 10 intensity. Could feel pelvic floor with NMES PT-OP-T Assessment and Plan Start: 03/23/20 12:07 Freq: Status: Active Protocol: Document 04/07/20 13:47 [facility] (Rec: 04/07/20 13:58 [facility] [id number]) Physical Therapy Assessment Assessment Summary Assessment Began EMG biofeedback today with vaginal sensor. No pain with use of vaginal sensor. MMT reveals weakness of the pelvic floor with 1/5 anterior and posterior and 2/5 lateral turcios of the levator ani. I also began NMES to help facilitate improved sensation of pelvic floor contractions which No tolerated well. Physical Therapy Plan Frequency and Duration Frequency of Treatment 1x/Week Duration of Treatment 8 Plan of Care Start Date 03/23/20 Plan of Care End Date 05/18/20 Therapeutic Interventions Therapeutic Interventions Home Exercise Program,Manual Therapy,Neuromuscular Re- education,Self-Care/Home Management,Soft Tissue Mobilization,Therapeutic Exercises Modalities Biofeedback,Ultrasound Next Visit Focus/Plan Next Note Type Treatment Note Next Visit Plan Continue to facilitate healing of the perineum and encourage pelvic floor strengthening and improved [id number]
--- NOTE | 2020-04-14 14:42 | PT.OTN ---
Current Diagnoses Other female genital prolapse (04/14/20) Third degree perineal laceration during delivery, unspecified (04/14/20) Physical Therapy Treatment Note PT-OP-A Visit Information Start: 03/23/20 12:07 Freq: Status: Active Protocol: Document 04/14/20 14:33 [facility] (Rec: 04/14/20 14:42 [facility] [id number]) Out-Patient Physical Therapy Visit Information Visit Information Visit Type Treatment Note Visit Start Time 12:10 Visit Stop Time 12:50 Total Visit Minutes 40 Visit Number 4 PT-OP-B Current Condition Start: 03/23/20 12:07 Freq: Status: Active Protocol: Document 03/23/20 13:01 [facility] (Rec: 03/23/20 13:15 [facility] [id number]) Current Condition History of Current Condition Onset Date 7 weeks post with forceps assists vaginal delivery 03 of February Current Complaints 3rd degree perineal tear with forcepts assisted vaginal delivery History of Current Condition 3rd degree perineal tear, having problems with flatulance, she has not yet returned to work. She wants to check for diastasis recti today as well. No reports they tried to use vaccumm but it didn't work and they had to use forceps. 3 weeks post she needed to be restictched. As of she still was not cheng fully healed. She has appointment with Dr. Dodd next sunday. No complaints of leakage or fecal incontinence but is concerned about returning to work and what she can do to help heal her tissue. Treatment Goals Patient/Caregiver Goals Annamarie goals include recovering from her 3rd degree perineal tear. improving strength and preventing any pelvic organ prolapse Current Functional Impairments (Reported) Functional Limitations- ADL's limited with activities that cause straining or downward pressure. No is not lifting any thing heavy at this time and is walking only for exercise. PT-OP-C Subjective Start: 03/23/20 12:07 Freq: Status: Active Protocol: Document 04/14/20 14:33 [facility] (Rec: 04/14/20 14:42 [facility] [id number]) OP-PT Subjective Patient Comments Patient Comments pt reports she is doing well and ordered the Yarlap but has not received it yet. No pain but she does describe pressure after a long walk. PT-OP-I Pelvic Floor Start: 03/23/20 12:07 Freq: Status: Active Protocol: Document 04/07/20 13:58 [facility] (Rec: 04/07/20 13:59 [facility] [id number]) Pelvic Floor Assessment Perineal Descent Resting Present Bearing Present SEMG (uV) Baseline 1.5 10 Second Contraction 4.7 Recruitment Pattern Fair Relaxation Good Holding Fair Stability of Hold Fair SEMG Stability of Rest Good Contraction Ability Voluntary Contraction Weak Voluntary Relaxation Weak Manual Muscle Testing Left 2 Manual Muscle Testing Right 2 Manual Muscle Testing Anterior 1 Manual Muscle Testing Posterior 1 Comments Pelvic Floor Comments Difficult to sustain contraction > 5-6 seconds, pt to work up to 10 second hold time for home PT-OP-J Posture/Palpation/Skin Start: 03/23/20 12:07 Freq: Status: Active Protocol: Document 03/23/20 18:04 [facility] (Rec: 03/23/20 18:33 [facility] [id number]) Palpation Assessment Location linea alba abdominal wall Palpation Location linea alba abdominal wall Palpation Details palpation for diastasis recti: There is no coning present with abdominal curl up, there is a 2 finger width seperation above and below the umbilicus PT-OP-M Strength Start: 03/23/20 18:35 Freq: Status: Active Protocol: Document 03/23/20 18:35 [facility] (Rec: 03/23/20 18:35 [facility] [email or web address]) Trunk Strength Trunk Manual Muscle Testing Flexion 3 Fair Core Stabilization decreased activation of the transverse abdominal muscle PT-OP-Q Treatments Start: 03/23/20 12:07 Freq: Status: Active Protocol: Document 04/14/20 14:33 [facility] (Rec: 04/14/20 14:42 [facility] [id number]) Therapeutic Exercises Supine Exercises pelvic floor quick contractions Reps/Minutes 2 seconds on 2 seconds off x 10 reps pelvic floor activation Supine Exercise Name EMG biofeedback was used for pelvic floor muscle training Reps/Minutes 10 reps x 10 second hold time Comments average contraction increased from a 4.7 to a 7.3 uv Manual Therapy Treatment Manual Techniques gentle side to side mobilization of the perineal body Type gentle side to side mobilization of the perineal body Comments perineal body mobilization sie to side only. Also tried minimal scar tissue gentle massage at the rectal sphincter. I kept this minimal for the first time today and very gentle. pelvic floor manual evaluation Type inspection of tissue healing Comments inspection of tissue healing shows still some red granulation tissue on the right side internally. No is able to pull her perineum up slightly today Neuro Re-Education Treatment Other Activities NMES Details NMES for the pelvic floor Comments pt able to increase stimulation to 12 intensity. Could feel pelvic floor with NMES PT-OP-T Assessment and Plan Start: 03/23/20 12:07 Freq: Status: Active Protocol: Document 04/14/20 14:33 [facility] (Rec: 04/14/20 14:42 [facility] [id number]) Physical Therapy Assessment Assessment Summary Assessment strength on EMg biofeedback increased today to 7.3 uv average. No tolerated miminal perineal scar tissue work and gentle side to side mobilizations of the perineal body. The goal is to minimize perineal gapping Physical Therapy Plan Frequency and Duration Frequency of Treatment 1x/Week Duration of Treatment 8 Plan of Care Start Date 03/23/20 Plan of Care End Date 05/18/20 Therapeutic Interventions Therapeutic Interventions Home Exercise Program,Manual Therapy,Neuromuscular Re- education,Self-Care/Home Management,Soft Tissue Mobilization,Therapeutic Exercises Modalities Biofeedback,Ultrasound Next Visit Focus/Plan Next Note Type Treatment Note Next Visit Plan Continue to facilitate healing of the perineum and encourge pelvic floor strengthening and improved sensation. Monitor effectiveness of perineal massage and continue to work on decreasing perineal gapping
--- NOTE | 2020-04-21 14:12 | PT.OTN ---
Current Diagnoses Other female genital prolapse (04/21/20) Third degree perineal laceration during delivery, unspecified (04/21/20) Physical Therapy Treatment Note PT-OP-A Visit Information Start: 03/23/20 12:07 Freq: Status: Active Protocol: Document 04/21/20 12:05 [facility] (Rec: 04/21/20 12:12 [facility] [id number]) Out-Patient Physical Therapy Visit Information Visit Information Visit Type Treatment Note Visit Start Time 12:05 Visit Stop Time 12:45 Total Visit Minutes 40 Visit Number 5 PT-OP-B Current Condition Start: 03/23/20 12:07 Freq: Status: Active Protocol: Document 03/23/20 13:01 [facility] (Rec: 03/23/20 13:15 [facility] [id number]) Current Condition History of Current Condition Onset Date 7 weeks post with forceps assists vaginal delivery 03 of February Current Complaints 3rd degree perineal tear with forcepts assisted vaginal delivery History of Current Condition 3rd degree perineal tear, having problems with flatulance, she has not yet returned to work. She wants to check for diastasis recti today as well. No reports they tried to use vaccumm but it didn't work and they had to use forceps. 3 weeks post she needed to be restictched. As of she still was not cheng fully healed. She has appointment with Dr. Dodd next sunday. No complaints of leakage or fecal incontinence but is concerned about returning to work and what she can do to help heal her tissue. Treatment Goals Patient/Caregiver Goals Annamarie goals include recovering from her 3rd degree perineal tear. improving strength and preventing any pelvic organ prolapse Current Functional Impairments (Reported) Functional Limitations- ADL's limited with activities that cause straining or downward pressure. No is not lifting any thing heavy at this time and is walking only for exercise. PT-OP-C Subjective Start: 03/23/20 12:07 Freq: Status: Active Protocol: Document 04/21/20 12:05 [facility] (Rec: 04/21/20 12:12 [facility] [id number]) OP-PT Subjective Patient Comments Patient Comments feels like she may have overfatigued her muscles and her underware were wet. Still has gas in the evenings and sometimes in the mornings. Pt does have the yarlap for home now and yesterday was her first day using it. PT-OP-I Pelvic Floor Start: 03/23/20 12:07 Freq: Status: Active Protocol: Document 04/07/20 13:58 [facility] (Rec: 04/07/20 13:59 [facility] [id number]) Pelvic Floor Assessment Perineal Descent Resting Present Bearing Present SEMG (uV) Baseline 1.5 10 Second Contraction 4.7 Recruitment Pattern Fair Relaxation Good Holding Fair Stability of Hold Fair SEMG Stability of Rest Good Contraction Ability Voluntary Contraction Weak Voluntary Relaxation Weak Manual Muscle Testing Left 2 Manual Muscle Testing Right 2 Manual Muscle Testing Anterior 1 Manual Muscle Testing Posterior 1 Comments Pelvic Floor Comments Difficult to sustain contraction > 5-6 seconds, pt to work up to 10 second hold time for home PT-OP-J Posture/Palpation/Skin Start: 03/23/20 12:07 Freq: Status: Active Protocol: Document 03/23/20 18:04 [facility] (Rec: 03/23/20 18:33 [facility] [email or web address]) Palpation Assessment Location linea alba abdominal wall Palpation Location linea alba abdominal wall Palpation Details palpation for diastasis recti: There is no coning present with abdominal curl up, there is a 2 finger width seperation above and below the umbilicus PT-OP-M Strength Start: 03/23/20 18:35 Freq: Status: Active Protocol: Document 03/23/20 18:35 [facility] (Rec: 03/23/20 18:35 [facility] [email or web address]) Trunk Strength Trunk Manual Muscle Testing Flexion 3 Fair Core Stabilization decreased activation of the transverse abdominal muscle PT-OP-Q Treatments Start: 03/23/20 12:07 Freq: Status: Active Protocol: Document 04/21/20 14:06 [facility] (Rec: 04/21/20 14:12 [facility] [email or web address]) Therapeutic Exercises Supine Exercises pelvic floor quick contractions Reps/Minutes 2 seconds on 2 seconds off x 10 reps pelvic floor activation Supine Exercise Name EMG biofeedback was used for pelvic floor muscle training Reps/Minutes 10 reps x 10 second hold time Comments average contraction increased from a 4.7 to a 7.3 uv Other Exercises templates for eccentric control and coordination Other Exercise Name templates for eccentric control and coordination Manual Therapy Treatment Soft Tissue Mobilization scar tissue mobilization of the perineum Body Location scar tissue mobilization of the perineum Comments worked on the tissue closest to the rectum gentle scar release Manual Techniques gentle side to side mobilization of the perineal body Type gentle side to side mobilization of the perineal body Comments perineal body mobilization sie to side only. Also tried minimal scar tissue gentle massage at the rectal sphincter. I kept this minimal for the first time today and very gentle. PT-OP-T Assessment and Plan Start: 03/23/20 12:07 Freq: Status: Active Protocol: Document 04/21/20 14:06 [facility] (Rec: 04/21/20 14:12 [facility] [id number]) Physical Therapy Assessment Assessment Summary Assessment Strength is increased again today on EMG biofeedback to 9 .7 uv and max of 26.6 uv. I added in templates for coordination and eccentric control today with good tolerance. Pt to use her yarlap every other day at this point due to muscle fatigue after exercise. Physical Therapy Plan Frequency and Duration Frequency of Treatment 1x/Week Duration of Treatment 8 Plan of Care Start Date 03/23/20 Plan of Care End Date 05/18/20 Therapeutic Interventions Therapeutic Interventions Home Exercise Program,Manual Therapy,Neuromuscular Re- education,Self-Care/Home Management,Soft Tissue Mobilization,Therapeutic Exercises Modalities Biofeedback,Ultrasound Next Visit Focus/Plan Next Note Type Treatment Note Next Visit Plan Continue to facilitate healing of the perineum and encourge pelvic floor strengthening and improved sensation. Monitor effectiveness of perineal massage and continue to work on decreasing perineal gapping
--- NOTE | 2020-04-28 14:25 | PT.OTN ---
Current Diagnoses Other female genital prolapse (04/28/20) Third degree perineal laceration during delivery, unspecified (04/28/20) Physical Therapy Treatment Note PT-OP-A Visit Information Start: 03/23/20 12:07 Freq: Status: Active Protocol: Document 04/28/20 11:26 [facility] (Rec: 04/28/20 11:30 [facility] [id number]) Out-Patient Physical Therapy Visit Information Visit Information Visit Type Treatment Note Visit Start Time 11:25 PT-OP-B Current Condition Start: 03/23/20 12:07 Freq: Status: Active Protocol: Document 03/23/20 13:01 [facility] (Rec: 03/23/20 13:15 [facility] [id number]) Current Condition History of Current Condition Onset Date 7 weeks post with forceps assists vaginal delivery 03 of February Current Complaints 3rd degree perineal tear with forcepts assisted vaginal delivery History of Current Condition 3rd degree perineal tear, having problems with flatulance, she has not yet returned to work. She wants to check for diastasis recti today as well. No reports they tried to use vaccumm but it didn't work and they had to use forceps. 3 weeks post she needed to be restictched. As of she still was not cheng fully healed. She has appointment with Dr. Dodd next sunday. No complaints of leakage or fecal incontinence but is concerned about returning to work and what she can do to help heal her tissue. Treatment Goals Patient/Caregiver Goals Annamarie goals include recovering from her 3rd degree perineal tear. improving strength and preventing any pelvic organ prolapse Current Functional Impairments (Reported) Functional Limitations- ADL's limited with activities that cause straining or downward pressure. No is not lifting any thing heavy at this time and is walking only for exercise. PT-OP-C Subjective Start: 03/23/20 12:07 Freq: Status: Active Protocol: Document 04/28/20 11:26 [facility] (Rec: 04/28/20 11:30 [facility] [id number]) OP-PT Subjective Patient Comments Patient Comments Pt reports she has been using the yarlap every day. She did take one day off. SHe did have one episode of leaking last sunday. She feels the passing of gas is less now. PT-OP-I Pelvic Floor Start: 03/23/20 12:07 Freq: Status: Active Protocol: Document 04/07/20 13:58 [facility] (Rec: 04/07/20 13:59 [facility] [id number]) Pelvic Floor Assessment Perineal Descent Resting Present Bearing Present SEMG (uV) Baseline 1.5 10 Second Contraction 4.7 Recruitment Pattern Fair Relaxation Good Holding Fair Stability of Hold Fair SEMG Stability of Rest Good Contraction Ability Voluntary Contraction Weak Voluntary Relaxation Weak Manual Muscle Testing Left 2 Manual Muscle Testing Right 2 Manual Muscle Testing Anterior 1 Manual Muscle Testing Posterior 1 Comments Pelvic Floor Comments Difficult to sustain contraction > 5-6 seconds, pt to work up to 10 second hold time for home PT-OP-J Posture/Palpation/Skin Start: 03/23/20 12:07 Freq: Status: Active Protocol: Document 03/23/20 18:04 [facility] (Rec: 03/23/20 18:33 [facility] [email or web address]) Palpation Assessment Location linea alba abdominal wall Palpation Location linea alba abdominal wall Palpation Details palpation for diastasis recti: There is no coning present with abdominal curl up, there is a 2 finger width seperation above and below the umbilicus PT-OP-M Strength Start: 03/23/20 18:35 Freq: Status: Active Protocol: Document 03/23/20 18:35 [facility] (Rec: 03/23/20 18:35 [facility] [email or web address]) Trunk Strength Trunk Manual Muscle Testing Flexion 3 Fair Core Stabilization decreased activation of the transverse abdominal muscle PT-OP-Q Treatments Start: 03/23/20 12:07 Freq: Status: Active Protocol: Document 04/28/20 14:21 [facility] (Rec: 04/28/20 14:25 [facility] [email or web address]) Therapeutic Exercises Supine Exercises pelvic floor quick contractions Reps/Minutes 2 seconds on 2 seconds off x 10 reps pelvic floor activation Supine Exercise Name EMG biofeedback was used for pelvic floor muscle training Reps/Minutes 10 reps x 10 second hold time Comments average contraction increased from a 4.7 to a 7.3 uv Manual Therapy Treatment Soft Tissue Mobilization scar tissue mobilization of the perineum Body Location scar tissue mobilization of the perineum Comments worked on the tissue closest to the rectum gentle scar release Manual Techniques manual release of the transverse perineal muscle Type manual release of the transverse perineum muscle gentle side to side mobilization of the perineal body Type gentle side to side mobilization of the perineal body Comments perineal body mobilization sie to side only. Also tried minimal scar tissue gentle massage at the rectal sphincter. I kept this minimal for the first time today and very gentle. Self-Care/Home Management Treatment Education Patient Education Home Exercise Program Other Education pt educated in self scar massage and to begin gentle adductor stretching PT-OP-T Assessment and Plan Start: 03/23/20 12:07 Freq: Status: Active Protocol: Document 04/28/20 14:21 [facility] (Rec: 04/28/20 14:25 [facility] [id number]) Physical Therapy Assessment Assessment Summary Assessment No still has a couple of red granulation tissue on the right side of the vaginal wall . The perineum appears well healed and I am able to work the scar tissue without discomfort. I did find some restrictions in the transverse perineal tissue today and No was educated in beginning adductor stretches. She does note she is doing better with flattulance. She wont be seen x 3 weeks and then we will consider use of rectal sensor for NMES if needed. Physical Therapy Plan Frequency and Duration Frequency of Treatment 1x/Week Duration of Treatment 8 Plan of Care Start Date 03/23/20 Plan of Care End Date 05/18/20 Therapeutic Interventions Therapeutic Interventions Home Exercise Program,Manual Therapy,Neuromuscular Re- education,Self-Care/Home Management,Soft Tissue Mobilization,Therapeutic Exercises Modalities Biofeedback,Ultrasound Next Visit Focus/Plan Next Note Type Treatment Note Next Visit Plan Continue to facilitate healing of the perineum and encourge pelvic floor strengthening and improved sensation. Monitor effectiveness of perineal massage and continue to work on decreasing perineal gapping . Possible use of the rectal sensor next visit for NMES
--- NOTE | 2020-06-09 14:05 | PT.OTN ---
Current Diagnoses Hypothyroidism, unspecified (06/09/20) Other female genital prolapse (06/09/20) Third degree perineal laceration during delivery, unspecified (06/09/20) Physical Therapy Treatment Note PT-OP-A Visit Information Start: 03/23/20 12:07 Freq: Status: Active Protocol: Document 06/09/20 12:50 [facility] (Rec: 06/09/20 12:51 [facility] [id number]) Out-Patient Physical Therapy Visit Information Visit Information Visit Type Treatment Note Visit Start Time 12:50 Visit Stop Time 13:10 Total Visit Minutes 45 Visit Number 7 PT-OP-B Current Condition Start: 03/23/20 12:07 Freq: Status: Active Protocol: Document 03/23/20 13:01 [facility] (Rec: 03/23/20 13:15 [facility] [id number]) Current Condition History of Current Condition Onset Date 7 weeks post with forceps assists vaginal delivery 03 of February Current Complaints 3rd degree perineal tear with forcepts assisted vaginal delivery History of Current Condition 3rd degree perineal tear, having problems with flatulance, she has not yet returned to work. She wants to check for diastasis recti today as well. No reports they tried to use vaccumm but it didn't work and they had to use forceps. 3 weeks post she needed to be restictched. As of she still was not cheng fully healed. She has appointment with Dr. Dodd next sunday. No complaints of leakage or fecal incontinence but is concerned about returning to work and what she can do to help heal her tissue. Treatment Goals Patient/Caregiver Goals Annamarie goals include recovering from her 3rd degree perineal tear. improving strength and preventing any pelvic organ prolapse Current Functional Impairments (Reported) Functional Limitations- ADL's limited with activities that cause straining or downward pressure. No is not lifting any thing heavy at this time and is walking only for exercise. PT-OP-C Subjective Start: 03/23/20 12:07 Freq: Status: Active Protocol: Document 06/09/20 12:51 [facility] (Rec: 06/09/20 12:58 [facility] [id number]) OP-PT Subjective Patient Comments Patient Comments SHe feels like she barely passes gas now, she was able to have intercourse, much less pelvic pressure and heaviness . Walking every day a hour with her baby in the stroller and is not feeling the pressure. Not running Patient Reported Progress Improving PT-OP-I Pelvic Floor Start: 03/23/20 12:07 Freq: Status: Active Protocol: Document 06/09/20 13:54 [facility] (Rec: 06/09/20 13:55 [facility] [email or web address]) Pelvic Floor Assessment Urine Pelvic Floor Surgery No: 3rd degree perineal laceration Contraction Ability Voluntary Contraction Moderate Voluntary Relaxation Moderate Manual Muscle Testing Left 2 Manual Muscle Testing Right 3 Manual Muscle Testing Anterior 2 Manual Muscle Testing Posterior 3 Comments Pelvic Floor Comments Much improved ability to sustain a pelvic floor contraction for 10 seconds in supine now PT-OP-J Posture/Palpation/Skin Start: 03/23/20 12:07 Freq: Status: Active Protocol: Document 03/23/20 18:04 [facility] (Rec: 03/23/20 18:33 [facility] [email or web address]) Palpation Assessment Location linea alba abdominal wall Palpation Location linea alba abdominal wall Palpation Details palpation for diastasis recti: There is no coning present with abdominal curl up, there is a 2 finger width seperation above and below the umbilicus PT-OP-M Strength Start: 03/23/20 18:35 Freq: Status: Active Protocol: Document 06/09/20 13:53 [facility] (Rec: 06/09/20 13:54 [facility] [email or web address]) Trunk Strength Trunk Manual Muscle Testing Flexion 4+ Good+ Core Stabilization Much improved core stabiliztion PT-OP-Q Treatments Start: 03/23/20 12:07 Freq: Status: Active Protocol: Document 06/09/20 13:46 [facility] (Rec: 06/09/20 13:53 [facility] [email or web address]) Therapeutic Exercises Supine Exercises iliopsoas stretch in supine Supine Exercise Name iliopsoas stretch in supine Comments left greater than right quad tightness templates for eccentric control and coordination Supine Exercise Name templates for eccentric control and coordination Reps/Minutes stair case pelvic floor quick contractions Reps/Minutes 2 seconds on 2 seconds off x 10 reps pelvic floor activation Supine Exercise Name EMG biofeedback was used for pelvic floor muscle training Reps/Minutes 10 reps x 10 second hold time Comments average contraction increased from a 4.7 to a 7.3 uv Sidelying Exercises sidelying quad and ITB stretch Sidelying Exercise Name sidelying quad and ITB stretch Manual Therapy Treatment Manual Techniques manual release of the transverse perineal muscle Type manual release of the transverse perineum muscle pelvic floor manual evaluation Type recheck of perineal tissue, pelvic floor MMT and tissue healing Comments decreased gapping of the perienum today, pt able to contract all parts of the levator ani now. PT-OP-T Assessment and Plan Start: 03/23/20 12:07 Freq: Status: Active Protocol: Document 06/09/20 13:46 [facility] (Rec: 06/09/20 13:53 [facility] [email or web address]) Physical Therapy Assessment Goals weakness of the levator ani Impairment weakness of the levator ani Skilled Nursing Goal (LTG) No is able to improve her levator ani strength from 2 and 3/5 MMT to 4/5 MMT for all turcios of the levator ani LTG Duration 8 weeks stretch weakness of the transverse abdominal musculature Impairment stretch weakness of the transverse abdominal musculature Short Term Goal (STG) No is able to sustain a abdominal contraction for 10 seconds in quadruped. GOAL MET STG Duration 4 weeks Skilled Nursing Goal (LTG) No is able to facilitate her core prior to lifting her baby for support of her back and pelvic organs. GOAL MET LTG Duration 8 weeks no lacks a home exercise program for pelvic floor strengthening Impairment Pt lacks a home program for pelvic floor strengthening [employer] Goal (LTG) No is independent with a home program for core and pelvic floor strengthening to support her pelvic organs and decrease c/o flatulance excellent progress 3rd degree perineal tear Impairment 3rd degree perineal tear s/o forceps and vaccum assisted vaginal delivery [employer] Goal (LTG) No is able to engage her pelvic floor muscles and lift her perineum sustaining a contraction for 10 seconds. GOAL MET LTG Duration 8 weeks Assessment Summary Assessment No has progressed so well with her home program. She hasn't been seen since Apr 28. Since that time she has been able to resume intercourse and notes her pelvic pressure is much less. She also reports her flatulance is much less. She is walking for a hour at a time now pushing her baby in a stroller and is not noting pelvic heaviness. With examination today her vaginal tissue appears fully healed. There is still a small amount of perineal gapping. She is able to better recruit her pelvic floor but is still weak in the side turcios. No would benefit from continued PT to progress her strengthening. Physical Therapy Plan Frequency and Duration Frequency of Treatment 1x/Week Duration of Treatment 8 Plan of Care Start Date 06/09/20 Plan of Care End Date 08/04/20 Therapeutic Interventions Therapeutic Interventions Home Exercise Program,Manual Therapy,Neuromuscular Re- education,Self-Care/Home Management,Soft Tissue Mobilization,Therapeutic Exercises Next Visit Focus/Plan Next Note Type Treatment Note Next Visit Plan mobilize the transverse perineum, EMG biofeedback, progress to more upright positions for pelvic floor strengthening
--- NOTE | 2020-06-09 14:05 | PT.OPPOC ---
Physical, Occupational & Speech Therapy At [facility] Current Diagnoses Hypothyroidism, unspecified (06/09/20) Other female genital prolapse (06/09/20) Third degree perineal laceration during delivery, unspecified (06/09/20) Visit Care Team Role Provider Type Kimmie Wallis MD Attending Provider Physician Primary Care Provider Referring Provider Specialty: [facility] Address: [address] [place] [address], [facility] [place], [address] Email: [email or web address] Plan Of Care PT-OP-T Assessment and Plan Start: 03/23/20 12:07 Freq: Status: Active Protocol: Document 06/09/20 13:46 [facility] (Rec: 06/09/20 13:53 [facility] [email or web address]) Physical Therapy Assessment Goals weakness of the levator ani Impairment weakness of the levator ani Equipment Driver Goal (LTG) Hayes is able to improve her levator ani strength from 2 and 3/5 MMT to 4/5 MMT for all turcios of the levator ani LTG Duration 8 weeks stretch weakness of the transverse abdominal musculature Impairment stretch weakness of the transverse abdominal musculature Short Term Goal (STG) Hayes is able to sustain a abdominal contraction for 10 seconds in quadruped. GOAL MET STG Duration 4 weeks Equipment Driver Goal (LTG) Hayes is able to facilitate her core prior to lifting her baby for support of her back and pelvic organs. GOAL MET LTG Duration 8 weeks hayes lacks a home exercise program for pelvic floor strengthening Impairment Pt lacks a home program for pelvic floor strengthening [facility] Goal (LTG) Hayes is independent with a home program for core and pelvic floor strengthening to support her pelvic organs and decrease c/o flatulance excellent progress 3rd degree perineal tear Impairment 3rd degree perineal tear s/o forceps and vaccum assisted vaginal delivery [facility] Goal (LTG) Hayes is able to engage her pelvic floor muscles and lift her perineum sustaining a contraction for 10 seconds. GOAL MET LTG Duration 8 weeks Assessment Summary Assessment Hayes has progressed so well with her home program. She hasn't been seen since Apr 28. Since that time she has been able to resume intercourse and notes her pelvic pressure is much less. She also reports her flatulence is much less. She is walking for a hour at a time now pushing her baby in a stroller and is not noting pelvic heaviness. With examination today her vaginal tissue appears fully healed. There is still a small amount of perineum gapping. She is able to better recruit her pelvic floor but is still weak in the side turcios. Hayes would benefit from continued PT to progress her strengthening. Physical Therapy Plan Frequency and Duration Frequency of Treatment 1x/Week Duration of Treatment 8 Plan of Care Start Date 06/09/20 Plan of Care End Date 08/04/20 Therapeutic Interventions Therapeutic Interventions Home Exercise Program,Manual Therapy,Neuromuscular Re- education,Self-Care/Home Management,Soft Tissue Mobilization,Therapeutic Exercises Next Visit Focus/Plan Next Note Type Treatment Note Next Visit Plan mobilize the transverse perineum, EMG biofeedback, progress to more upright positions for pelvic floor strengthening Plan of Care Dates Plan of Care Start Date 06/09/20 Plan of Care End Date 08/04/20 Electronically Signed by: Landy Mccracken, PT 06/09/20 [id number] Please Sign and Return: I have reviewed this Plan of Care and certify that the skilled therapy services above are required to meet the patient?s needs. Physician Signature Date Printed Name and Credentials Clinical Instructor Signature Printed Name and Credentials
--- NOTE | 2020-06-09 14:07 | PT.OPPOC ---
Physical, Occupational & Speech Therapy At [facility] Current Diagnoses Hypothyroidism, unspecified (06/09/20) Other female genital prolapse (06/09/20) Third degree perineal laceration during delivery, unspecified (06/09/20) Visit Care Team Role Provider Type Kimmie Wallis MD Attending Provider Physician Primary Care Provider Referring Provider Specialty: [facility] Address: [address] [place] [address], [facility] [place], [address] Email: [email or web address] Plan Of Care PT-OP-T Assessment and Plan Start: 03/23/20 12:07 Freq: Status: Active Protocol: Document 06/09/20 13:46 [facility] (Rec: 06/09/20 13:53 [facility] [email or web address]) Physical Therapy Assessment Goals weakness of the levator ani Impairment weakness of the levator ani City Engineer Goal (LTG) Hayes is able to improve her levator ani strength from 2 and 3/5 MMT to 4/5 MMT for all turcios of the levator ani LTG Duration 8 weeks stretch weakness of the transverse abdominal musculature Impairment stretch weakness of the transverse abdominal musculature Short Term Goal (STG) Hayes is able to sustain a abdominal contraction for 10 seconds in quadruped. GOAL MET STG Duration 4 weeks City Engineer Goal (LTG) Hayes is able to facilitate her core prior to lifting her baby for support of her back and pelvic organs. GOAL MET LTG Duration 8 weeks hayes lacks a home exercise program for pelvic floor strengthening Impairment Pt lacks a home program for pelvic floor strengthening Nursing Home Goal (LTG) Hayes is independent with a home program for core and pelvic floor strengthening to support her pelvic organs and decrease c/o flatulence excellent progress 3rd degree perineal tear Impairment 3rd degree perineum tear s/o forceps and vacuum assisted vaginal delivery Nursing Home Goal (LTG) Hayes is able to engage her pelvic floor muscles and lift her perineum sustaining a contraction for 10 seconds. GOAL MET LTG Duration 8 weeks Assessment Summary Assessment Hayes has progressed so well with her home program. She hasn't been seen since Apr 28. Since that time she has been able to resume intercourse and notes her pelvic pressure is much less. She also reports her flatulence is much less. She is walking for a hour at a time now pushing her baby in a stroller and is not noting pelvic heaviness. With examination today her vaginal tissue appears fully healed. There is still a small amount of perineum gapping. She is able to better recruit her pelvic floor but is still weak in the side turcios. Hayes would benefit from continued PT to progress her strengthening. Physical Therapy Plan Frequency and Duration Frequency of Treatment 1x/Week Duration of Treatment 8 Plan of Care Start Date 06/09/20 Plan of Care End Date 08/04/20 Therapeutic Interventions Therapeutic Interventions Home Exercise Program,Manual Therapy,Neuromuscular Re- education,Self-Care/Home Management,Soft Tissue Mobilization,Therapeutic Exercises Next Visit Focus/Plan Next Note Type Treatment Note Next Visit Plan mobilize the transverse perineum, EMG biofeedback, progress to more upright positions for pelvic floor strengthening Plan of Care Dates Plan of Care Start Date 06/09/20 Plan of Care End Date 08/04/20 Electronically Signed by: Landy cMcracken, PT 06/09/20 [id number] Please Sign and Return: I have reviewed this Plan of Care and certify that the skilled therapy services above are required to meet the patient?s needs. Physician Signature Date Printed Name and Credentials Clinical Instructor Signature Printed Name and Credentials
[2020-06-09 15:06] LABS: Thyroid Stimulating Hormone 2.28 uIU/mL (0.47-4.68)
--- NOTE | 2020-06-15 17:11 | PT.OTN ---
Current Diagnoses Other female genital prolapse (06/15/20) Third degree perineal laceration during delivery, unspecified (06/15/20) Physical Therapy Treatment Note PT-OP-A Visit Information Start: 03/23/20 12:07 Freq: Status: Active Protocol: Document 06/15/20 14:27 [facility] (Rec: 06/15/20 14:36 [facility] [id number]) Out-Patient Physical Therapy Visit Information Visit Information Visit Type Treatment Note Visit Start Time 14:30 Visit Stop Time 15:15 Total Visit Minutes 45 Visit Number 8 PT-OP-B Current Condition Start: 03/23/20 12:07 Freq: Status: Active Protocol: Document 03/23/20 13:01 [facility] (Rec: 03/23/20 13:15 [facility] [id number]) Current Condition History of Current Condition Onset Date 7 weeks post with forceps assists vaginal delivery 03 of February Current Complaints 3rd degree perineal tear with forcepts assisted vaginal delivery History of Current Condition 3rd degree perineal tear, having problems with flatulance, she has not yet returned to work. She wants to check for diastasis recti today as well. No reports they tried to use vaccumm but it didn't work and they had to use forceps. 3 weeks post she needed to be restictched. As of she still was not cheng fully healed. She has appointment with Dr. Dodd next sunday. No complaints of leakage or fecal incontinence but is concerned about returning to work and what she can do to help heal her tissue. Treatment Goals Patient/Caregiver Goals Annamarie goals include recovering from her 3rd degree perineal tear. improving strength and preventing any pelvic organ prolapse Current Functional Impairments (Reported) Functional Limitations- ADL's limited with activities that cause straining or downward pressure. No is not lifting any thing heavy at this time and is walking only for exercise. PT-OP-C Subjective Start: 03/23/20 12:07 Freq: Status: Active Protocol: Document 06/15/20 14:27 [facility] (Rec: 06/15/20 14:36 [facility] [id number]) OP-PT Subjective Patient Comments Patient Comments No more leaking after the yarlap. Did good after last visit. PT-OP-I Pelvic Floor Start: 03/23/20 12:07 Freq: Status: Active Protocol: Document 06/09/20 13:54 [facility] (Rec: 06/09/20 13:55 [facility] [email or web address]) Pelvic Floor Assessment Urine Pelvic Floor Surgery No: 3rd degree perineal laceration Contraction Ability Voluntary Contraction Moderate Voluntary Relaxation Moderate Manual Muscle Testing Left 2 Manual Muscle Testing Right 3 Manual Muscle Testing Anterior 2 Manual Muscle Testing Posterior 3 Comments Pelvic Floor Comments Much improved ability to sustain a pelvic floor contraction for 10 seconds in supine now PT-OP-J Posture/Palpation/Skin Start: 03/23/20 12:07 Freq: Status: Active Protocol: Document 03/23/20 18:04 [facility] (Rec: 03/23/20 18:33 [facility] [email or web address]) Palpation Assessment Location linea alba abdominal wall Palpation Location linea alba abdominal wall Palpation Details palpation for diastasis recti: There is no coning present with abdominal curl up, there is a 2 finger width seperation above and below the umbilicus PT-OP-M Strength Start: 03/23/20 18:35 Freq: Status: Active Protocol: Document 06/09/20 13:53 [facility] (Rec: 06/09/20 13:54 [facility] [email or web address]) Trunk Strength Trunk Manual Muscle Testing Flexion 4+ Good+ Core Stabilization Much improved core stabiliztion PT-OP-Q Treatments Start: 03/23/20 12:07 Freq: Status: Active Protocol: Document 06/15/20 17:00 [facility] (Rec: 06/15/20 17:10 [facility] [email or web address]) Therapeutic Exercises Supine Exercises templates for eccentric control and coordination Supine Exercise Name templates for eccentric control and coordination Reps/Minutes stair case pelvic floor quick contractions Reps/Minutes 2 seconds on 2 seconds off x 10 reps pelvic floor activation Supine Exercise Name EMG biofeedback was used for pelvic floor muscle training Reps/Minutes 10 reps x 10 second hold time Comments average contraction increased from a 4.7 to a 7.3 uv Manual Therapy Treatment Soft Tissue Mobilization scar tissue mobilization of the perineum Body Location scar tissue mobilization of the perineum Comments worked on the tissue closest to the rectum gentle scar release Manual Techniques recheck for diastasis Type recheck for diastasis recti Comments No is doing really well with rectus abdominus closure. She has a 1 finger width both distal and proximal to the umbilicus manual release of the transverse perineal muscle Type manual release of the transverse perineum muscle gentle side to side mobilization of the perineal body Type gentle side to side mobilization of the perineal body Comments perineal body mobilization sie to side only. Also tried minimal scar tissue gentle massage at the rectal sphincter. I kept this minimal for the first time today and very gentle. PT-OP-T Assessment and Plan Start: 03/23/20 12:07 Freq: Status: Active Protocol: Document 06/15/20 17:00 [facility] (Rec: 06/15/20 17:10 [facility] [id number]) Physical Therapy Assessment Assessment Summary Assessment No continues to progress and diastasis has closed quite a bit. She is able to perform a abdominal crunch without any discomfort. Physical Therapy Plan Frequency and Duration Frequency of Treatment 1x/Week Duration of Treatment 8 Plan of Care Start Date 06/09/20 Plan of Care End Date 08/04/20 Next Visit Focus/Plan Next Note Type Treatment Note Next Visit Plan NMES with the rectal sensor, continue with manual mobilizations and EMG biofeedback
--- NOTE | 2020-06-22 15:50 | PT.OTN ---
Current Diagnoses Other female genital prolapse (06/22/20) Third degree perineal laceration during delivery, unspecified (06/22/20) Physical Therapy Treatment Note PT-OP-A Visit Information Start: 03/23/20 12:07 Freq: Status: Active Protocol: Document 06/22/20 14:38 [facility] (Rec: 06/22/20 14:42 [facility] [id number]) Out-Patient Physical Therapy Visit Information Visit Information Visit Type Treatment Note Visit Start Time 14:38 Visit Stop Time 15:15 PT-OP-B Current Condition Start: 03/23/20 12:07 Freq: Status: Active Protocol: Document 03/23/20 13:01 [facility] (Rec: 03/23/20 13:15 [facility] [id number]) Current Condition History of Current Condition Onset Date 7 weeks post with forceps assists vaginal delivery 03 of February Current Complaints 3rd degree perineal tear with forcepts assisted vaginal delivery History of Current Condition 3rd degree perineal tear, having problems with flatulance, she has not yet returned to work. She wants to check for diastasis recti today as well. No reports they tried to use vaccumm but it didn't work and they had to use forceps. 3 weeks post she needed to be restictched. As of she still was not cheng fully healed. She has appointment with Dr. Dodd next sunday. No complaints of leakage or fecal incontinence but is concerned about returning to work and what she can do to help heal her tissue. Treatment Goals Patient/Caregiver Goals Annamarie goals include recovering from her 3rd degree perineal tear. improving strength and preventing any pelvic organ prolapse Current Functional Impairments (Reported) Functional Limitations- ADL's limited with activities that cause straining or downward pressure. No is not lifting any thing heavy at this time and is walking only for exercise. PT-OP-C Subjective Start: 03/23/20 12:07 Freq: Status: Active Protocol: Document 06/22/20 14:38 [facility] (Rec: 06/22/20 14:42 [facility] [id number]) OP-PT Subjective Patient Comments Patient Comments Pt is getting better, flattulance is not as frequent and not as often towards the end of the day. Did two full yarlap sessions 20 minutes. PT-OP-I Pelvic Floor Start: 03/23/20 12:07 Freq: Status: Active Protocol: Document 06/09/20 13:54 [facility] (Rec: 06/09/20 13:55 [facility] [email or web address]) Pelvic Floor Assessment Urine Pelvic Floor Surgery No: 3rd degree perineal laceration Contraction Ability Voluntary Contraction Moderate Voluntary Relaxation Moderate Manual Muscle Testing Left 2 Manual Muscle Testing Right 3 Manual Muscle Testing Anterior 2 Manual Muscle Testing Posterior 3 Comments Pelvic Floor Comments Much improved ability to sustain a pelvic floor contraction for 10 seconds in supine now PT-OP-J Posture/Palpation/Skin Start: 03/23/20 12:07 Freq: Status: Active Protocol: Document 03/23/20 18:04 [facility] (Rec: 03/23/20 18:33 [facility] [email or web address]) Palpation Assessment Location linea alba abdominal wall Palpation Location linea alba abdominal wall Palpation Details palpation for diastasis recti: There is no coning present with abdominal curl up, there is a 2 finger width seperation above and below the umbilicus PT-OP-M Strength Start: 03/23/20 18:35 Freq: Status: Active Protocol: Document 06/09/20 13:53 [facility] (Rec: 06/09/20 13:54 [facility] [email or web address]) Trunk Strength Trunk Manual Muscle Testing Flexion 4+ Good+ Core Stabilization Much improved core stabiliztion PT-OP-Q Treatments Start: 03/23/20 12:07 Freq: Status: Active Protocol: Document 06/22/20 15:44 [facility] (Rec: 06/22/20 15:49 [facility] [email or web address]) Manual Therapy Treatment Soft Tissue Mobilization transverse perineal MFR Body Location transverse perineal MFR Comments left greater than right transverse perineum tightness scar tissue mobilization of the perineum Body Location scar tissue mobilization of the perineum Comments worked on the tissue closest to the rectum gentle scar release Manual Techniques gentle side to side mobilization of the perineal body Type gentle side to side mobilization of the perineal body Comments perineal body mobilization sie to side only. Also tried minimal scar tissue gentle massage at the rectal sphincter. I kept this minimal for the first time today and very gentle. pelvic floor manual evaluation Type recheck of perineal tissue, pelvic floor MMT Comments much improved levator ani recruitment now. left lower lateral wall still needs increased strength. I talked about clam shells and lateral hip work to help bring in the obturator internus Neuro Re-Education Treatment Other Activities NMES Details NMES Comments NMES with rectal sensor was performed today asd No still feels she needs to be close to a bathroom expecially in the am PT-OP-T Assessment and Plan Start: 03/23/20 12:07 Freq: Status: Active Protocol: Document 06/22/20 15:44 [facility] (Rec: 06/22/20 15:49 [facility] [email or web address]) Physical Therapy Assessment Assessment Summary Assessment No continues to make progress. We did work with the rectal sensor with NMES today as No still feels that if she had lose stool it would be difficult to control. She tolerated this well. Physical Therapy Plan Frequency and Duration Frequency of Treatment 1x/Week Duration of Treatment 8 Plan of Care Start Date 06/09/20 Plan of Care End Date 08/04/20 Therapeutic Interventions Therapeutic Interventions Home Exercise Program,Manual Therapy,Neuromuscular Re- education,Self-Care/Home Management,Soft Tissue Mobilization,Therapeutic Exercises Next Visit Focus/Plan Next Note Type Treatment Note Next Visit Plan NMES with the rectal sensor, continue with manual mobilizations and EMG biofeedback
--- NOTE | 2020-06-29 15:37 | PT.OTN ---
Current Diagnoses Other female genital prolapse (06/29/20) Third degree perineal laceration during delivery, unspecified (06/29/20) Physical Therapy Treatment Note PT-OP-A Visit Information Start: 03/23/20 12:07 Freq: Status: Active Protocol: Document 06/29/20 14:34 [facility] (Rec: 06/29/20 14:39 [facility] [id number]) Out-Patient Physical Therapy Visit Information Visit Information Visit Type Treatment Note Visit Start Time 14:35 PT-OP-B Current Condition Start: 03/23/20 12:07 Freq: Status: Active Protocol: Document 03/23/20 13:01 [facility] (Rec: 03/23/20 13:15 [facility] [id number]) Current Condition History of Current Condition Onset Date 7 weeks post with forceps assists vaginal delivery 03 of February Current Complaints 3rd degree perineal tear with forcepts assisted vaginal delivery History of Current Condition 3rd degree perineal tear, having problems with flatulance, she has not yet returned to work. She wants to check for diastasis recti today as well. No reports they tried to use vaccumm but it didn't work and they had to use forceps. 3 weeks post she needed to be restictched. As of she still was not cheng fully healed. She has appointment with Dr. Dodd next sunday. No complaints of leakage or fecal incontinence but is concerned about returning to work and what she can do to help heal her tissue. Treatment Goals Patient/Caregiver Goals Annamarie goals include recovering from her 3rd degree perineal tear. improving strength and preventing any pelvic organ prolapse Current Functional Impairments (Reported) Functional Limitations- ADL's limited with activities that cause straining or downward pressure. No is not lifting any thing heavy at this time and is walking only for exercise. PT-OP-C Subjective Start: 03/23/20 12:07 Freq: Status: Active Protocol: Document 06/29/20 14:34 [facility] (Rec: 06/29/20 14:39 [facility] [id number]) OP-PT Subjective Patient Comments Patient Comments has been using the yarlap more PT-OP-I Pelvic Floor Start: 03/23/20 12:07 Freq: Status: Active Protocol: Document 06/09/20 13:54 [facility] (Rec: 06/09/20 13:55 [facility] [email or web address]) Pelvic Floor Assessment Urine Pelvic Floor Surgery No: 3rd degree perineal laceration Contraction Ability Voluntary Contraction Moderate Voluntary Relaxation Moderate Manual Muscle Testing Left 2 Manual Muscle Testing Right 3 Manual Muscle Testing Anterior 2 Manual Muscle Testing Posterior 3 Comments Pelvic Floor Comments Much improved ability to sustain a pelvic floor contraction for 10 seconds in supine now PT-OP-J Posture/Palpation/Skin Start: 03/23/20 12:07 Freq: Status: Active Protocol: Document 03/23/20 18:04 [facility] (Rec: 03/23/20 18:33 [facility] [email or web address]) Palpation Assessment Location linea alba abdominal wall Palpation Location linea alba abdominal wall Palpation Details palpation for diastasis recti: There is no coning present with abdominal curl up, there is a 2 finger width seperation above and below the umbilicus PT-OP-M Strength Start: 03/23/20 18:35 Freq: Status: Active Protocol: Document 06/09/20 13:53 [facility] (Rec: 06/09/20 13:54 [facility] [email or web address]) Trunk Strength Trunk Manual Muscle Testing Flexion 4+ Good+ Core Stabilization Much improved core stabiliztion PT-OP-Q Treatments Start: 03/23/20 12:07 Freq: Status: Active Protocol: Document 06/29/20 15:03 [facility] (Rec: 06/29/20 15:04 [facility] [id number]) Therapeutic Exercises Supine Exercises pelvic floor activation Supine Exercise Name EMG biofeedback was used for pelvic floor muscle training Reps/Minutes 10 reps x 10 second hold time Comments 11.0 and max of 17.6 uv Manual Therapy Treatment Soft Tissue Mobilization transverse perineal MFR Body Location transverse perineal MFR Comments left greater than right transverse perineum tightness scar tissue mobilization of the perineum Body Location scar tissue mobilization of the perineum Comments worked on the tissue closest to the rectum gentle scar release Neuro Re-Education Treatment Other Activities NMES Details NMES Comments NMES with rectal sensor was performed today x 10 min PT-OP-T Assessment and Plan Start: 03/23/20 12:07 Freq: Status: Active Protocol: Document 06/29/20 15:32 [facility] (Rec: 06/29/20 15:35 [facility] [email or web address]) Physical Therapy Assessment Assessment Summary Assessment No has decreased scar tissue tightness in the perineum today. She has right greater than left sided transverse perineal tightness. She had improved recruitment of the pelvic floor today with average of 11 uv on rectal sensor. She does note a little more flattulance this week but is not sure if it is due to food she has eaten or not. Recheck in with this next visit Physical Therapy Plan Frequency and Duration Frequency of Treatment 1x/Week Duration of Treatment 8 Plan of Care Start Date 06/09/20 Plan of Care End Date 08/04/20 Therapeutic Interventions Therapeutic Interventions Home Exercise Program,Manual Therapy,Neuromuscular Re- education,Self-Care/Home Management,Soft Tissue Mobilization,Therapeutic Exercises
--- NOTE | 2020-07-06 15:35 | PT.OTN ---
Current Diagnoses Other female genital prolapse (07/06/20) Third degree perineal laceration during delivery, unspecified (07/06/20) Physical Therapy Treatment Note PT-OP-A Visit Information Start: 03/23/20 12:07 Freq: Status: Active Protocol: Document 07/06/20 14:36 [facility] (Rec: 07/06/20 14:47 [facility] [id number]) Out-Patient Physical Therapy Visit Information Visit Information Visit Type Treatment Note PT-OP-B Current Condition Start: 03/23/20 12:07 Freq: Status: Active Protocol: Document 03/23/20 13:01 [facility] (Rec: 03/23/20 13:15 [facility] [id number]) Current Condition History of Current Condition Onset Date 7 weeks post with forceps assists vaginal delivery 03 of February Current Complaints 3rd degree perineal tear with forcepts assisted vaginal delivery History of Current Condition 3rd degree perineal tear, having problems with flatulance, she has not yet returned to work. She wants to check for diastasis recti today as well. No reports they tried to use vaccumm but it didn't work and they had to use forceps. 3 weeks post she needed to be restictched. As of she still was not cheng fully healed. She has appointment with Dr. Dodd next sunday. No complaints of leakage or fecal incontinence but is concerned about returning to work and what she can do to help heal her tissue. Treatment Goals Patient/Caregiver Goals Annamarie goals include recovering from her 3rd degree perineal tear. improving strength and preventing any pelvic organ prolapse Current Functional Impairments (Reported) Functional Limitations- ADL's limited with activities that cause straining or downward pressure. No is not lifting any thing heavy at this time and is walking only for exercise. PT-OP-C Subjective Start: 03/23/20 12:07 Freq: Status: Active Protocol: Document 07/06/20 14:36 [facility] (Rec: 07/06/20 14:47 [facility] [id number]) OP-PT Subjective Patient Comments Patient Comments Did yarlap every other day, was able to go to yoga. PT-OP-I Pelvic Floor Start: 03/23/20 12:07 Freq: Status: Active Protocol: Document 06/09/20 13:54 [facility] (Rec: 06/09/20 13:55 [facility] [email or web address]) Pelvic Floor Assessment Urine Pelvic Floor Surgery No: 3rd degree perineal laceration Contraction Ability Voluntary Contraction Moderate Voluntary Relaxation Moderate Manual Muscle Testing Left 2 Manual Muscle Testing Right 3 Manual Muscle Testing Anterior 2 Manual Muscle Testing Posterior 3 Comments Pelvic Floor Comments Much improved ability to sustain a pelvic floor contraction for 10 seconds in supine now PT-OP-J Posture/Palpation/Skin Start: 03/23/20 12:07 Freq: Status: Active Protocol: Document 03/23/20 18:04 [facility] (Rec: 03/23/20 18:33 [facility] [email or web address]) Palpation Assessment Location linea alba abdominal wall Palpation Location linea alba abdominal wall Palpation Details palpation for diastasis recti: There is no coning present with abdominal curl up, there is a 2 finger width seperation above and below the umbilicus PT-OP-M Strength Start: 03/23/20 18:35 Freq: Status: Active Protocol: Document 06/09/20 13:53 [facility] (Rec: 06/09/20 13:54 [facility] [email or web address]) Trunk Strength Trunk Manual Muscle Testing Flexion 4+ Good+ Core Stabilization Much improved core stabiliztion PT-OP-Q Treatments Start: 03/23/20 12:07 Freq: Status: Active Protocol: Document 07/06/20 15:11 [facility] (Rec: 07/06/20 15:12 [facility] [id number]) Therapeutic Exercises Supine Exercises pelvic floor quick contractions Supine Exercise Name pelvic floor quick contractions Comments rectal sensor 2 sec on 2 sec off pelvic floor activation Supine Exercise Name EMG biofeedback was used for pelvic floor muscle training Reps/Minutes 10 reps x 10 second hold time Comments 17.1 21.1 uv average rectal sensor. Manual Therapy Treatment Soft Tissue Mobilization transverse perineal MFR Body Location transverse perineal MFR Comments left greater than right transverse perineum tightness scar tissue mobilization of the perineum Body Location scar tissue mobilization of the perineum Comments worked on the tissue closest to the rectum gentle scar release Neuro Re-Education Treatment Other Activities NMES Details NMES Comments NMES with rectal sensor was performed today x 10 min PT-OP-T Assessment and Plan Start: 03/23/20 12:07 Freq: Status: Active Protocol: Document 07/06/20 15:33 [facility] (Rec: 07/06/20 15:35 [facility] [email or web address]) Physical Therapy Assessment Assessment Summary Assessment no is demonstrating improved contraction of the pelvic floor and her average on EMBbiofeedback had improved today. She is till experiencing flatulence especially later in the day Physical Therapy Plan Frequency and Duration Frequency of Treatment 1x/Week Duration of Treatment 8 Plan of Care Start Date 06/09/20 Plan of Care End Date 08/04/20 Therapeutic Interventions Therapeutic Interventions Home Exercise Program,Manual Therapy,Neuromuscular Re- education,Self-Care/Home Management,Soft Tissue Mobilization,Therapeutic Exercises Next Visit Focus/Plan Next Note Type Treatment Note Next Visit Plan NMES with the rectal sensor, continue with manual mobilizations and EMG biofeedback
--- NOTE | 2020-07-13 18:08 | PT.OTN ---
Current Diagnoses Other female genital prolapse (07/13/20) Third degree perineal laceration during delivery, unspecified (07/13/20) Physical Therapy Treatment Note PT-OP-A Visit Information Start: 03/23/20 12:07 Freq: Status: Active Protocol: Document 07/13/20 17:55 [facility] (Rec: 07/13/20 18:01 [facility] [email or web address]) Out-Patient Physical Therapy Visit Information Visit Information Visit Type Treatment Note Visit Start Time 14:35 Visit Stop Time 15:20 Total Visit Minutes 45 Visit Number 12 PT-OP-B Current Condition Start: 03/23/20 12:07 Freq: Status: Active Protocol: Document 03/23/20 13:01 [facility] (Rec: 03/23/20 13:15 [facility] [id number]) Current Condition History of Current Condition Onset Date 7 weeks post with forceps assists vaginal delivery 03 of February Current Complaints 3rd degree perineal tear with forcepts assisted vaginal delivery History of Current Condition 3rd degree perineal tear, having problems with flatulance, she has not yet returned to work. She wants to check for diastasis recti today as well. No reports they tried to use vaccumm but it didn't work and they had to use forceps. 3 weeks post she needed to be restictched. As of she still was not cheng fully healed. She has appointment with Dr. Dodd next sunday. No complaints of leakage or fecal incontinence but is concerned about returning to work and what she can do to help heal her tissue. Treatment Goals Patient/Caregiver Goals Annamarie goals include recovering from her 3rd degree perineal tear. improving strength and preventing any pelvic organ prolapse Current Functional Impairments (Reported) Functional Limitations- ADL's limited with activities that cause straining or downward pressure. No is not lifting any thing heavy at this time and is walking only for exercise. PT-OP-C Subjective Start: 03/23/20 12:07 Freq: Status: Active Protocol: Document 07/13/20 17:55 [facility] (Rec: 07/13/20 18:01 [facility] [email or web address]) OP-PT Subjective Patient Comments Patient Comments pt reports she feels she is continuing to get stronger. No new complaints PT-OP-I Pelvic Floor Start: 03/23/20 12:07 Freq: Status: Active Protocol: Document 06/09/20 13:54 [facility] (Rec: 06/09/20 13:55 [facility] [email or web address]) Pelvic Floor Assessment Urine Pelvic Floor Surgery No: 3rd degree perineal laceration Contraction Ability Voluntary Contraction Moderate Voluntary Relaxation Moderate Manual Muscle Testing Left 2 Manual Muscle Testing Right 3 Manual Muscle Testing Anterior 2 Manual Muscle Testing Posterior 3 Comments Pelvic Floor Comments Much improved ability to sustain a pelvic floor contraction for 10 seconds in supine now PT-OP-J Posture/Palpation/Skin Start: 03/23/20 12:07 Freq: Status: Active Protocol: Document 03/23/20 18:04 [facility] (Rec: 03/23/20 18:33 [facility] [email or web address]) Palpation Assessment Location linea alba abdominal wall Palpation Location linea alba abdominal wall Palpation Details palpation for diastasis recti: There is no coning present with abdominal curl up, there is a 2 finger width seperation above and below the umbilicus PT-OP-M Strength Start: 03/23/20 18:35 Freq: Status: Active Protocol: Document 06/09/20 13:53 [facility] (Rec: 06/09/20 13:54 [facility] [email or web address]) Trunk Strength Trunk Manual Muscle Testing Flexion 4+ Good+ Core Stabilization Much improved core stabiliztion PT-OP-Q Treatments Start: 03/23/20 12:07 Freq: Status: Active Protocol: Document 07/13/20 15:06 [facility] (Rec: 07/13/20 15:23 [facility] [id number]) Therapeutic Exercises Supine Exercises templates for eccentric control and coordination Supine Exercise Name templates for eccentric control and coordination Reps/Minutes stair case, combo exercises, eccentric control pelvic floor quick contractions Supine Exercise Name pelvic floor quick contractions Comments rectal sensor 2 sec on 2 sec off pelvic floor activation Comments 9.6 uv average and 18.0 uv max with vaginal sensor. Manual Therapy Treatment Soft Tissue Mobilization transverse perineal MFR Body Location transverse perineal MFR Comments left greater than right transverse perineum tightness scar tissue mobilization of the perineum Body Location scar tissue mobilization of the perineum Comments worked on the tissue closest to the rectum gentle scar release PT-OP-T Assessment and Plan Start: 03/23/20 12:07 Freq: Status: Active Protocol: Document 07/13/20 17:55 [facility] (Rec: 07/13/20 18:01 [facility] [email or web address]) Physical Therapy Assessment Assessment Summary Assessment No was able to increase her average on EMG biofeedback today to 9.6 uv which is 2 uv better than last time we checked with the vaginal sensor. She has decreased perineal gapping now as well. Pt was instructed to begin standing pelvic floor contractions and work towards 10 second hold time. Physical Therapy Plan Frequency and Duration Frequency of Treatment 1x/Week Duration of Treatment 8 Plan of Care Start Date 06/09/20 Plan of Care End Date 08/04/20 Therapeutic Interventions Therapeutic Interventions Home Exercise Program,Manual Therapy,Neuromuscular Re- education,Self-Care/Home Management,Soft Tissue Mobilization,Therapeutic Exercises Next Visit Focus/Plan Next Note Type Treatment Note Next Visit Plan NMES with the rectal sensor, continue with manual mobilizations and EMG biofeedback
--- NOTE | 2020-09-07 16:44 | PT.OPPOC ---
Physical, Occupational & Speech Therapy At [facility] Current Diagnoses Other female genital prolapse (09/07/20) Third degree perineal laceration during delivery, unspecified (09/07/20) Visit Care Team Role Provider Type Kimmie Wallis MD Attending Provider Physician Primary Care Provider Referring Provider Specialty: Family Practice Address: [address] [place] [address], [facility] Email: [email or web address] Plan Of Care PT-OP-T Assessment and Plan Start: 03/23/20 12:07 Freq: Status: Active Protocol: Document 09/07/20 15:15 [facility] (Rec: 09/07/20 16:41 [facility] [email or web address]) Physical Therapy Assessment Goals weakness of the levator ani Impairment weakness of the levator ani Group Home Goal (LTG) Hayes is able to improve her levator ani strength from 2 and 3/5 MMT to 4/5 MMT for all turcios of the levator ani Good progress still 3/5 posterior wall LTG Duration 8 weeks stretch weakness of the transverse abdominal musculature Impairment stretch weakness of the transverse abdominal musculature Short Term Goal (STG) Hayes is able to sustain a abdominal contraction for 10 seconds in quadruped. 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 GOAL MET LTG Duration 8 weeks hayes lacks a home exercise program for pelvic floor strengthening Impairment Pt lacks a home program for pelvic floor strengthening Group Home Goal (LTG) Hayes is independent with a home program for core and pelvic floor strengthening to support her pelvic organs and decrease c/o flatulence excellent progress 3rd degree perineal tear Impairment 3rd degree perineal tear s/o forceps and vacuum assisted vaginal delivery Group Home Goal (LTG) Hayes is able to engage her pelvic floor muscles and lift her perineum sustaining a contraction for 10 seconds. GOAL MET LTG Duration 8 weeks Assessment Summary Assessment Hayes returns to PT after working on her own for 6 weeks . She reports she is still feeling some flatulence and is concerned about pelvic organ prolapse. She has been using her home stimulation device approximately 1 xm per week. She has returned to yoga without problems and has done a few hikes with her baby as well. She has no complaints of leakage at this time. With examination today there is a grade 1 rectocele and cystocele, Hayes is able to contract all parts of the levator ani and she is able to lift from the perineum. She does have two tags of tissue that are present and one is right at the rectum. She notes this bothers her at times. We talked about how she carries her baby in a front pack and I did recommend starting to work towards the back to decrease downward strain on her pelvic floor as her baby is over 20 pounds now . I also talked to her about inversion for her pelvis for decompression of her pelvic organs. Hayes would like to recheck in another 4-6 weeks. Physical Therapy Plan Frequency and Duration Frequency of Treatment Every Other Week Duration of Treatment 8 Plan of Care Start Date 09/07/20 Plan of Care End Date 11/10/20 Therapeutic Interventions Therapeutic Interventions Home Exercise Program,Manual Therapy,Neuromuscular Re- education,Self-Care/Home Management,Soft Tissue Mobilization,Therapeutic Exercises Next Visit Focus/Plan Next Note Type Treatment Note Next Visit Plan recheck pelvic floor tone, NMES with rectal sensor and EMG biofeedback. Plan of Care Dates Plan of Care Start Date 09/07/20 Plan of Care End Date 11/10/20 Electronically Signed by: Landy Mccracken, PT 09/07/20 8038 Please Sign and Return: I have reviewed this Plan of Care and certify that the skilled therapy services above are required to meet the patient?s needs. Physician Signature Date Printed Name and Credentials Clinical Instructor Signature Printed Name and Credentials
--- NOTE | 2020-10-19 09:29 | PT.OTN ---
Current Diagnoses Other female genital prolapse (10/14/20) Third degree perineal laceration during delivery, unspecified (10/14/20) Physical Therapy Treatment Note PT-OP-A Visit Information Start: 03/23/20 12:07 Freq: Status: Active Protocol: Document 10/14/20 13:59 [facility] (Rec: 10/14/20 14:00 [facility] [id number]) Out-Patient Physical Therapy Visit Information Visit Information Visit Type Treatment Note Visit Start Time 13:55 Visit Stop Time 14:30 Total Visit Minutes 35 Visit Number 14 PT-OP-B Current Condition Start: 03/23/20 12:07 Freq: Status: Active Protocol: Document 03/23/20 13:01 [facility] (Rec: 03/23/20 13:15 [facility] [id number]) Current Condition History of Current Condition Onset Date 7 weeks post with forceps assists vaginal delivery 03 of February Current Complaints 3rd degree perineal tear with forcepts assisted vaginal delivery History of Current Condition 3rd degree perineal tear, having problems with flatulance, she has not yet returned to work. She wants to check for diastasis recti today as well. No reports they tried to use vaccumm but it didn't work and they had to use forceps. 3 weeks post she needed to be restictched. As of she still was not cheng fully healed. She has appointment with Dr. Dodd next sunday. No complaints of leakage or fecal incontinence but is concerned about returning to work and what she can do to help heal her tissue. Treatment Goals Patient/Caregiver Goals Annamarie goals include recovering from her 3rd degree perineal tear. improving strength and preventing any pelvic organ prolapse Current Functional Impairments (Reported) Functional Limitations- ADL's limited with activities that cause straining or downward pressure. No is not lifting any thing heavy at this time and is walking only for exercise. PT-OP-C Subjective Start: 03/23/20 12:07 Freq: Status: Active Protocol: Document 10/14/20 13:59 [facility] (Rec: 10/14/20 13:56 [facility] [id number]) OP-PT Subjective Patient Comments Patient Comments After last session she has less flattulance and felt the NMES with the rectal sensor helped her. She is seeing a specialist today for visit to see if she can have the rectal skin tags removed Patient Reported Progress Improving PT-OP-I Pelvic Floor Start: 03/23/20 12:07 Freq: Status: Active Protocol: Document 06/09/20 13:54 [facility] (Rec: 06/09/20 13:55 [facility] [email or web address]) Pelvic Floor Assessment Urine Pelvic Floor Surgery No: 3rd degree perineal laceration Contraction Ability Voluntary Contraction Moderate Voluntary Relaxation Moderate Manual Muscle Testing Left 2 Manual Muscle Testing Right 3 Manual Muscle Testing Anterior 2 Manual Muscle Testing Posterior 3 Comments Pelvic Floor Comments Much improved ability to sustain a pelvic floor contraction for 10 seconds in supine now PT-OP-J Posture/Palpation/Skin Start: 03/23/20 12:07 Freq: Status: Active Protocol: Document 03/23/20 18:04 [facility] (Rec: 03/23/20 18:33 [facility] [email or web address]) Palpation Assessment Location linea alba abdominal wall Palpation Location linea alba abdominal wall Palpation Details palpation for diastasis recti: There is no coning present with abdominal curl up, there is a 2 finger width seperation above and below the umbilicus PT-OP-M Strength Start: 03/23/20 18:35 Freq: Status: Active Protocol: Document 06/09/20 13:53 [facility] (Rec: 06/09/20 13:54 [facility] [email or web address]) Trunk Strength Trunk Manual Muscle Testing Flexion 4+ Good+ Core Stabilization Much improved core stabiliztion PT-OP-Q Treatments Start: 03/23/20 12:07 Freq: Status: Active Protocol: Document 10/14/20 13:59 [facility] (Rec: 10/14/20 14:24 [facility] [id number]) Therapeutic Exercises Supine Exercises templates for eccentric control and coordination Supine Exercise Name templates for eccentric control and coordination Reps/Minutes stair case, combo exercises, eccentric control pelvic floor quick contractions Supine Exercise Name pelvic floor quick contractions Comments rectal sensor 2 sec on 2 sec off pelvic floor activation Supine Exercise Name EMG biofeedback was used for pelvic floor muscle training Reps/Minutes 10 reps x 10 second hold Comments 10.5 uv average max 18.1 uv Neuro Re-Education Treatment Other Activities NMES Details NMES with rectal sensor Comments NMES with rectal sensor x 15 minutes PT-OP-T Assessment and Plan Start: 03/23/20 12:07 Freq: Status: Active Protocol: Document 10/14/20 13:59 [facility] (Rec: 10/19/20 09:29 [facility] [email or web address]) Physical Therapy Assessment Goals pt is still experiencing flatulence from her 3rd degree tear 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 GOAL MET LTG Duration 8 weeks Assessment Summary Assessment No returns to PT today and has been working on her own since her last visit September 07. She reports using the rectal sensor last visit for NMES really helped with flatulence. She is also seeking consult for skin tags on her rectum. She would like to have a revisit in PT in 4-6 weeks to recheck her strength. Physical Therapy Plan Frequency and Duration Frequency of Treatment Every Other Week Duration of Treatment 8 Plan of Care Start Date 10/14/20 Plan of Care End Date 12/07/20 Therapeutic Interventions Therapeutic Interventions Home Exercise Program,Manual Therapy,Neuromuscular Re- education,Self-Care/Home Management,Soft Tissue Mobilization,Therapeutic Exercises Next Visit Focus/Plan Next Note Type Treatment Note Next Visit Plan recheck pelvic floor tone, NMES with rectal sensor and EMG biofeedback.
--- NOTE | 2020-10-19 09:29 | PT.OPPOC ---
Physical, Occupational & Speech Therapy At [facility] Current Diagnoses Other female genital prolapse (10/14/20) Third degree perineal laceration during delivery, unspecified (10/14/20) Visit Care Team Role Provider Type Kimmie Wallis MD Attending Provider Physician Primary Care Provider Referring Provider Specialty: Family Practice Address: [address] [place] [address], [place], [place], [facility] Email: [email or web address] Plan Of Care PT-OP-T Assessment and Plan Start: 03/23/20 12:07 Freq: Status: Active Protocol: Document 10/14/20 13:59 [facility] (Rec: 10/19/20 09:29 [facility] [email or web address]) Physical Therapy Assessment Goals jarocho is still experiencing flatulence from her 3rd degree tear Usp Goal (LTG) Hayes is able to control flatulence 80% of the time and weakness of the levator ani Impairment weakness of the levator ani 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 GOAL MET STG Duration 4 weeks Magento Developer Goal (LTG) Hayes is able to facilitate her core prior to lifting her baby for support of her back and pelvic organs. GOAL MET LTG Duration 8 weeks hayes lacks a home exercise program for pelvic floor strengthening Impairment Pt lacks a home program for pelvic floor strengthening Magento Developer Goal (LTG) Hayes is independent with a home program for core and pelvic floor strengthening to support her pelvic organs and decrease c/o flatulence GOAL MET 3rd degree perineal tear Impairment 3rd degree perineal tear s/o forceps and vaccum assisted vaginal delivery Usp Goal (LTG) Hayes is able to engage her pelvic floor muscles and lift her perineum sustaining a contraction for 10 seconds. GOAL MET LTG Duration 8 weeks Assessment Summary Assessment Hayes returns to PT today and has been working on her own since her last visit September 07. She reports using the rectal sensor last visit for NMES really helped with flatulence. She is also seeking consult for skin tags on her rectum. She would like to have a revisit in PT in 4-6 weeks to recheck her strength. Physical Therapy Plan Frequency and Duration Frequency of Treatment Every Other Week Duration of Treatment 8 Plan of Care Start Date 10/14/20 Plan of Care End Date 12/07/20 Therapeutic Interventions Therapeutic Interventions Home Exercise Program,Manual Therapy,Neuromuscular Re- education,Self-Care/Home Management,Soft Tissue Mobilization,Therapeutic Exercises Next Visit Focus/Plan Next Note Type Treatment Note Next Visit Plan recheck pelvic floor tone, NMES with rectal sensor and EMG biofeedback. Plan of Care Dates Plan of Care Start Date 10/14/20 Plan of Care End Date 12/07/20 Electronically Signed by: Landy Mccracken, PT 10/19/20 1245 Please Sign and Return: I have reviewed this Plan of Care and certify that the skilled therapy services above are required to meet the patient?s needs. Physician Signature Date Printed Name and Credentials Clinical Instructor Signature Printed Name and Credentials
--- NOTE | 2021-01-26 11:09 | PT.OPDS ---
Current Diagnoses Other female genital prolapse (10/14/20) Third degree perineal laceration during delivery, unspecified (10/14/20) Visit Care Team Role Provider Type Kimmie Wallis MD Attending Provider Physician Primary Care Provider Referring Provider Specialty: Family Practice Address: [address] [place] [address], [facility] Email: [email or web address] Visit Number Visit Number 14 Discharge Summary PT-OP-B Current Condition Start: 03/23/20 12:07 Freq: Status: Active Protocol: Document 03/23/20 13:01 [facility] (Rec: 03/23/20 13:15 [facility] [id number]) Current Condition History of Current Condition Onset Date 7 weeks post with forceps assists vaginal delivery 03 of February Current Complaints 3rd degree perineal tear with forcepts assisted vaginal delivery History of Current Condition 3rd degree perineal tear, having problems with flatulance, she has not yet returned to work. She wants to check for diastasis recti today as well. No reports they tried to use vaccumm but it didn't work and they had to use forceps. 3 weeks post she needed to be restictched. As of she still was not cheng fully healed. She has appointment with Dr. Dodd next sunday. No complaints of leakage or fecal incontinence but is concerned about returning to work and what she can do to help heal her tissue. Treatment Goals Patient/Caregiver Goals Annamarie goals include recovering from her 3rd degree perineal tear. improving strength and preventing any pelvic organ prolapse Current Functional Impairments (Reported) Functional Limitations- ADL's limited with activities that cause straining or downward pressure. No is not lifting any thing heavy at this time and is walking only for exercise. PT-OP-C Subjective Start: 03/23/20 12:07 Freq: Status: Active Protocol: Document 10/14/20 13:59 [facility] (Rec: 10/14/20 13:56 [facility] [id number]) OP-PT Subjective Patient Comments Patient Comments After last session she has less flattulance and felt the NMES with the rectal sensor helped her. She is seeing a specialist today for visit to see if she can have the rectal skin tags removed Patient Reported Progress Improving PT-OP-I Pelvic Floor Start: 03/23/20 12:07 Freq: Status: Active Protocol: Document 06/09/20 13:54 [facility] (Rec: 06/09/20 13:55 [facility] [email or web address]) Pelvic Floor Assessment Urine Pelvic Floor Surgery No: 3rd degree perineal laceration Contraction Ability Voluntary Contraction Moderate Voluntary Relaxation Moderate Manual Muscle Testing Left 2 Manual Muscle Testing Right 3 Manual Muscle Testing Anterior 2 Manual Muscle Testing Posterior 3 Comments Pelvic Floor Comments Much improved ability to sustain a pelvic floor contraction for 10 seconds in supine now PT-OP-J Posture/Palpation/Skin Start: 03/23/20 12:07 Freq: Status: Active Protocol: Document 03/23/20 18:04 [facility] (Rec: 03/23/20 18:33 [facility] [email or web address]) Palpation Assessment Location linea alba abdominal wall Palpation Location linea alba abdominal wall Palpation Details palpation for diastasis recti: There is no coning present with abdominal curl up, there is a 2 finger width seperation above and below the umbilicus PT-OP-M Strength Start: 03/23/20 18:35 Freq: Status: Active Protocol: Document 06/09/20 13:53 [facility] (Rec: 06/09/20 13:54 [facility] [email or web address]) Trunk Strength Trunk Manual Muscle Testing Flexion 4+ Good+ Core Stabilization Much improved core stabiliztion PT-OP-T Assessment and Plan Start: 03/23/20 12:07 Freq: Status: Active Protocol: Document 01/26/21 11:07 [facility] (Rec: 01/26/21 11:09 [facility] [email or web address]) Physical Therapy Assessment Assessment Summary Assessment No returns to PT today and has been working on her own since her last visit September 07. She reports using the rectal sensor last visit for NMES really helped with flatulence. She is also seeking consult for skin tags on her rectum. She did cx her last visit scheduled and I know she is also going to school at this time. No will be discharged from PT. I am happy to return to PT at any time in the future for her should she seek further care Physical Therapy Plan Discharge Physical Therapy Discharge Reasons No Longer Attending PT
== END 2021-01-26 11:19 | disposition home or self-care (01) ==
LOC: PHYS 13:45
PROVIDERS: PCP Family Medicine; Referring Provider Family Medicine; Visit Provider Family Medicine
DX: N81.89 Other female genital prolapse (principal); O70.20 Third degree perineal laceration during delivery, unspecified
CPT/HCPCS: 36415; 84443; 97110; 97112; 97140; 97161; 97535

== ENCOUNTER → 2021-03-31 07:37 | Outpatient (CLI) | payer BC, OTHER, SELFPAY ==
[2021-03-31 08:18] LABS: Add Manual Diff / Slide Review NO; Basophils Absolute Auto 0 /uL (0-100); Basophils Percent Auto 0.9 % (0-2); Eosinophils Absolute Auto 200 /uL (0-450); Hematocrit 39.6 % (36-46); Hemoglobin 13.4 g/dL (12.0-16.0); Lymphocytes Absolute Auto 2200 /uL (1100-4500); Lymphocytes Percent Auto 41.5 % (25-40); Mean Corpuscular HGB Conc 33.7 % (30-36); Mean Corpuscular Hemoglobin 30.1 PG (26-34); Mean Corpuscular Volume 89.2 fL (80-100); Monocytes Absolute Auto 300 /uL (0-900); Monocytes Percent Auto 6.5 % (3-14); Neutrophils Absolute Auto 2600 /uL (1500-7000); Neutrophils Percent Auto 48.1 % (50-75); Platelet Count 187 X10^3/uL (150-400); Red Blood Cell Count 4.45 X10^6/uL (4.0-5.2); Red Cell Distribution Width 12.9 % (11.6-14.8); White Blood Cell Count 5.4 X10^3/uL (4.5-11.0)
[2021-03-31 08:31] LABS: Alanine Aminotransferase 15 IU/L (<35); Albumin 4.5 g/dL (3.5-5.0); Albumin Globulin Ratio 1.5 (1.0-2.8); Alkaline Phosphatase 51 U/L (38-126); Aspartate Aminotransferase 26 IU/L (14-36); BUN Creatinine Ratio 14.9 (6-22); Bilirubin Total 1.5 mg/dL (0.2-1.3); Blood Urea Nitrogen 13 mg/dL (7-17); Calcium 9.2 mg/dL (8.4-10.2); Carbon Dioxide 26 mmol/L (22-32); Chloride 104 mmol/L (98-107); Cholesterol 177 mg/dL (140-199); Estimated Glomerular Filt Rate > 60.0 mL/min (>60); Globulin 3.1 g/dL (1.7-4.1); Glucose 87 mg/dL (70-100); HDL Cholesterol 58 mg/dL (40-60); HEMOLYSIS < 15 (0-50); LDL Cholesterol Calculated 105 mg/dL (<100); Sodium 137 mmol/L (137-145); Total Protein 7.6 g/dL (6.3-8.2); Triglycerides 71 mg/dL (35-150)
[2021-03-31 09:22] LABS: Thyroid Stimulating Hormone 10.6 uIU/mL (0.47-4.68)
== END ==
PROVIDERS: PCP Family Medicine; Referring Provider Family Medicine; Visit Provider Family Medicine
DX: E03.9 Hypothyroidism, unspecified (principal)
CPT/HCPCS: 36415; 80053; 80061; 84443; 85025

== ENCOUNTER → 2021-06-09 14:24 | Outpatient (CLI) | payer BC, OTHER, SELFPAY ==
[2021-06-09 16:18] LABS: Free T3, Triiodothyronine Free 3.06 pg/mL (2.77-5.27); Free T4, Direct Thyroxine 1.38 ng/dL (0.78-2.19)
[2021-06-09 16:32] LABS: Thyroid Stimulating Hormone 2.04 uIU/mL (0.47-4.68)
== END ==
PROVIDERS: PCP Family Medicine; Referring Provider Family Medicine; Visit Provider Family Medicine
DX: E03.9 Hypothyroidism, unspecified (principal)
CPT/HCPCS: 36415; 84439; 84443; 84481